=== PATIENT | female | born 1970 | race Caucasian/White ===

== ENCOUNTER 2016-08-23 22:38 | Emergency (ER) | payer BC, OTHER ==
[2016-08-23 22:45] VITALS: BP 133/77; PULSE 84; RESP 18; TEMP 98.2
[2016-08-23 23:16] LABS: Appearance,Urine Clear (Clear); Bacteria,Urine Rare /hpf; Bilirubin,Urine Negative (Negative); Glucose,Urine (UA) Negative (Negative); Ketones,Urine Negative (Negative); Leukocyte Esterase,Urine Large (Negative); Mucus,Urine Few /hpf; Nitrite,Urine Negative (Negative); Particle Count 5760; Protein,Urine Negative (Negative); RBC,Urine 2 /hpf (0-5); Specific Gravity,Urine 1.017 (1.001-1.035); Squamous Epithelial Cell,Urine 4 /hpf (0-4); UA Billing (MACRO vs. MICRO) MICRO; Urobilinogen,Urine <2.0 mg/dL (<2.0); WBC,Urine 1 /hpf (0-5)
--- NOTE | 2016-08-23 23:29 | ED ---
General Adult HPI - General Chief complaint: Abdominal Pain Stated complaint: female Time Seen by Provider: 08/23/16 22:49 Source: patient, RN notes reviewed Mode of arrival: ambulatory Limitations: no limitations - History of Present Illness Initial comments: 46-year-old female presents emergency Department chief complaint of vaginal pain. Patient states that she's had some soreness last few days. Patient denies any discharge or any bleeding. She states she's not had a menstrual cycle in 5 years. Patient states that she had 4 pregnancies with 4 live births. Patient states that she has no dysuria no hematuria. Patient states that when she sits down she feels some irritation and some pain in her vaginal region. Patient states she has no rectal pain and denies any diarrhea or constipation. - Related Data Home Medications Medication Instructions Recorded Confirmed ALPRAZolam [Xanax] 1 mg PO Q8HR PRN 01/12/15 08/23/16 Albuterol Inhaler [Ventolin Hfa 1 - 2 puff INHALATION RT-Q6H PRN 01/12/15 Inhaler] Budesonide/Formoterol Fumarate 2 puff INHALATION RT-BID 01/12/15 08/23/16 [Symbicort 160-4.5 Mcg Inhaler] Ibuprofen [Motrin] 800 mg PO Q8HR PRN 01/12/15 08/23/16 Hydrocodone/Acetaminophen [Sims 1 tab PO Q6H PRN 08/23/16 08/23/16 10-325] Omeprazole [PriLOSEC] 20 mg PO DAILY PRN 08/23/16 08/23/16 Previous Rx's Medication Instructions Recorded Acyclovir 400 mg PO TID #30 tablet 08/23/16 Allergies Allergy/AdvReac Type Severity Reaction Status Date / Time clarithromycin [From Biaxin] Allergy Unknown Verified 08/23/16 22:57 doxycycline Allergy Rash/Hives Verified 08/23/16 22:57 aspirin AdvReac Nausea & Verified 08/23/16 22:57 Vomiting Review of Systems ROS Statement: Those systems with pertinent positive or pertinent negative responses have been documented in the HPI. ROS Other: All systems not noted in ROS Statement are negative. Past Medical History Past Medical History: COPD, GERD/Reflux, Vascular Disorder Additional Past Medical History / Comment(s): PUD, DDD, chronic low back pain, cervical pain, bronchitis, hyperthyroidism. History of Any Multi-Drug Resistant Organisms: None Reported Past Surgical History: Cholecystectomy, Tubal Ligation Additional Past Surgical History / Comment(s): Laparoscopic cholecystectomy 1999 , EGD 2012. Past Anesthesia/Blood Transfusion Reactions: No Reported Reaction Past Psychological History: No Psychological Hx Reported Additional Psychological History / Comment(s): Pt resides with her parents and she has 2 of her children ages 12 living with her. She is independent. Smoking Status: Current every day smoker Past Alcohol Use History: Rare Additional Past Alcohol Use History / Comment(s): Pt states she started smoking at the age of 13 or 14yrs. She states she is under a ppd smoker. Past Drug Use History: None Reported - Past Family History Mother Family Medical History: Coronary Artery Disease (CAD), Myocardial Infarction ([place] ) Additional Family Medical History / Comment(s): Mother is 78yrs old. Father Family Medical History: GERD/Reflux Additional Family Medical History / Comment(s): Father is 78yrs old. Brother(s) Family Medical History: No Reported History Daughter(s) Family Medical History: No Reported History Son(s) Family Medical History: No Reported History General Exam Limitations: no limitations General appearance: alert, in no apparent distress Respiratory exam: Present: normal lung sounds bilaterally. Absent: respiratory distress, wheezes, rales, rhonchi, stridor Cardiovascular Exam: Present: regular rate, normal rhythm, normal heart sounds. Absent: systolic murmur, diastolic murmur, rubs, gallop, clicks GI/Abdominal exam: Present: soft, normal bowel sounds. Absent: distended, tenderness, guarding, rebound, rigid External exam: Present: lesions (Erythematous sores noted), other (exam performed with SHANIQUE Forbes). Absent: normal external exam Speculum exam: Present: normal speculum exam Course Vital Signs 08/23/16 22:44 Temperature 98.2 F Pulse Rate 84 Respiratory 18 Rate Blood Pressure 133/77 O2 Sat by Pulse 98 Oximetry Medical Decision Making - Lab Data Lab Results 08/23/16 Range/Units 23:00 Urine Color Yellow Urine Appearance Clear (Clear) Urine pH 7.0 (5.0-8.0) Ur Specific [place] 1.017 (1.001-1.035) Urine Protein Negative (Negative) Urine Glucose (UA) Negative (Negative) Urine Ketones Negative (Negative) Urine Blood Negative (Negative) Urine Nitrate Negative (Negative) Urine Bilirubin Negative (Negative) Urine Urobilinogen <2.0 (<2.0) mg/dL Ur Leukocyte Esterase Large H (Negative) Urine RBC 2 (0-5) /hpf Urine WBC 1 (0-5) /hpf Ur Squamous Epith Cells 4 (0-4) /hpf Urine Bacteria Rare H (None) /hpf Urine Mucus Few H (None) /hpf Disposition Clinical Impression: Genital herpes Disposition: HOME SELF-CARE Condition: Stable Instructions: Genital Herpes Simplex (ED) Additional Instructions: Please return to the Emergency Department if symptoms worsen or any other concerns. Prescriptions: Acyclovir 400 mg PO TID #30 tablet Referrals: Avery Connor DO [Primary Care Provider] - 1-2 days Time of Disposition: 23:29
== END 2016-08-23 23:40 | disposition home or self-care (01) ==
LOC: EC 22:38
DX: A60.04 Herpesviral vulvovaginitis (principal); J44.9 Chronic obstructive pulmonary disease, unspecified; K21.9 Gastro-esophageal reflux disease without esophagitis; F17.200 Nicotine dependence, unspecified, uncomplicated; Z79.51 Long term (current) use of inhaled steroids; Z79.899 Other long term (current) drug therapy; Z88.1 Allergy status to other antibiotic agents
CPT/HCPCS: 81001; 87070; 87205; 87491; 87591; 87808; 99284

== ENCOUNTER 2016-09-24 09:45 | Emergency (ER) | payer BC, OTHER ==
[2016-09-24] MEDS ORDERED: ONDANSETRON 4 MG/2 ML VIAL IVP STA ×2 (10:29→13:26)
[2016-09-24] MEDS ORDERED: ACETAMINOPHEN IV (For NPO) 1,000 MG in SALINE 1 100ML.BAG IVPB STA (10:29)
[2016-09-24] MEDS ORDERED: DICYCLOMINE 10 MG/ML 2 ML AMP IM STA (10:29)
[2016-09-24] MEDS ORDERED: SODIUM CHLORIDE 0.9% 2,000 ML IV STA (10:29)
[2016-09-24] MEDS ORDERED: FAMOTIDINE 20 MG/2 ML VIAL IV STA (10:29)
--- NOTE | 2016-09-24 10:32 | ED ---
General Adult HPI - General Chief complaint: Abdominal Pain Stated complaint: Vomiting Time Seen by Provider: 09/24/16 10:10 Source: patient, family, RN notes reviewed Mode of arrival: wheelchair Limitations: no limitations - History of Present Illness Initial comments: Patient is a pleasant 46-year-old female presenting to the emergency department with nausea vomiting and diarrhea. Patient has had upper respiratory chest congestion for several days. Patient started with diarrhea yesterday. Diarrhea seemed to let up today however patient has been vomiting since early in the morning.. Patient still feels nauseous. Patient does have chills and myalgias. Patient states no significant abdominal pain, just discomfort. - Related Data Home Medications Medication Instructions Recorded Confirmed ALPRAZolam [Xanax] 1 mg PO DAILY PRN 01/12/15 09/24/16 Albuterol Inhaler [Ventolin Hfa 1 - 2 puff INHALATION RT-Q6H PRN 01/12/15 Inhaler] Budesonide/Formoterol Fumarate 2 puff INHALATION RT-BID 01/12/15 09/24/16 [Symbicort 160-4.5 Mcg Inhaler] Ibuprofen [Motrin] 800 mg PO TID PRN 01/12/15 09/24/16 Hydrocodone/Acetaminophen [Crane 1 tab PO Q6H PRN 08/23/16 09/24/16 10-325] Previous Rx's Medication Instructions Recorded Ondansetron Odt [Zofran Odt] 4 mg PO Q8HR PRN #10 tab 09/24/16 Allergies Allergy/AdvReac Type Severity Reaction Status Date / Time clarithromycin [From Biaxin] Allergy Unknown Verified 09/24/16 13:29 doxycycline Allergy Rash/Hives Verified 09/24/16 13:29 aspirin AdvReac Nausea & Verified 09/24/16 13:29 Vomiting Review of Systems ROS Statement: Those systems with pertinent positive or pertinent negative responses have been documented in the HPI. ROS Other: All systems not noted in ROS Statement are negative. Constitutional: Reports: chills Eyes: Denies: eye pain ENT: Reports: congestion. Denies: ear pain Respiratory: Reports: cough Cardiovascular: Denies: chest pain Endocrine: Denies: fatigue Gastrointestinal: Reports: abdominal pain, nausea, vomiting, diarrhea Genitourinary: Denies: dysuria Musculoskeletal: Denies: back pain Skin: Denies: rash Neurological: Denies: weakness Past Medical History Past Medical History: COPD, GERD/Reflux, Vascular Disorder Additional Past Medical History / Comment(s): PUD, DDD, chronic low back pain, cervical pain, bronchitis, hyperthyroidism. History of Any Multi-Drug Resistant Organisms: None Reported Past Surgical History: Cholecystectomy, Tubal Ligation Additional Past Surgical History / Comment(s): Laparoscopic cholecystectomy 1999 , EGD 2012. Past Anesthesia/Blood Transfusion Reactions: No Reported Reaction Past Psychological History: No Psychological Hx Reported Additional Psychological History / Comment(s): Pt resides with her parents and she has 2 of her children ages 12 living with her. She is independent. Smoking Status: Current every day smoker Past Alcohol Use History: Rare Additional Past Alcohol Use History / Comment(s): Pt states she started smoking at the age of 13 or 14yrs. She states she is under a ppd smoker. Past Drug Use History: None Reported - Past Family History Mother Family Medical History: Coronary Artery Disease (CAD), Myocardial Infarction ([place] ) Additional Family Medical History / Comment(s): Mother is 78yrs old. Father Family Medical History: GERD/Reflux Additional Family Medical History / Comment(s): Father is 78yrs old. Brother(s) Family Medical History: No Reported History Daughter(s) Family Medical History: No Reported History Son(s) Family Medical History: No Reported History General Exam Limitations: no limitations General appearance: alert, in no apparent distress Head exam: Present: atraumatic Eye exam: Present: normal appearance, PERRL ENT exam: Present: normal oropharynx Neck exam: Present: normal inspection Respiratory exam: Present: normal lung sounds bilaterally Cardiovascular Exam: Present: regular rate, normal rhythm GI/Abdominal exam: Present: soft, normal bowel sounds. Absent: distended, tenderness, guarding, rebound, rigid, pulsatile mass Extremities exam: Present: normal inspection. Absent: pedal edema, calf tenderness Neurological exam: Present: alert Psychiatric exam: Present: normal affect, normal mood Skin exam: Present: normal color Course Vital Signs 09/24/16 10:14 Temperature 98.3 F Pulse Rate 56 L Respiratory 20 Rate Blood Pressure 177/82 O2 Sat by Pulse 98 Oximetry - Reevaluation(s) Reevaluation #1: 09/24/16 13:31 Patient reevaluated. Abdomen remained soft and nontender. Patient is tolerating ice chips. Patient still complains of nausea. Patient was offered computed tomography scan however refused. This is felt to be of little value secondary to nontender abdomen. 09/24/16 14:25 Patient is again reevaluated and improved. Patient is comfortable with discharge home. Medical Decision Making - Lab Data Result diagrams: 09/24/16 10:57 09/24/16 10:57 Lab Results 09/24/16 09/24/16 09/24/16 Range/Units 10:57 10:57 10:57 WBC 4.8 (3.8-10.6) k/uL RBC 4.74 (3.80-5.40) m/uL Hgb 14.5 (11.4-16.0) gm/dL Hct 43.9 (34.0-46.0) % MCV 92.7 (80.0-100.0) fL MCH 30.7 (25.0-35.0) pg MCHC 33.1 (31.0-37.0) g/dL RDW 13.1 (11.5-15.5) % Plt Count 240 (150-450) k/uL Neutrophils % 63 % Lymphocytes % 24 % Monocytes % 9 % Eosinophils % 1 % Basophils % 0 % Neutrophils # 3.0 (1.3-7.7) k/uL Lymphocytes # 1.2 (1.0-4.8) k/uL Monocytes # 0.4 (0-1.0) k/uL Eosinophils # 0.0 (0-0.7) k/uL Basophils # 0.0 (0-0.2) k/uL Sodium 141 (137-145) mmol/L Potassium 3.7 (3.5-5.1) mmol/L Chloride 106 (98-107) mmol/L Carbon Dioxide 22 (22-30) mmol/L Anion Gap 13 mmol/L BUN 14 (7-17) mg/dL Creatinine 0.54 (0.52-1.04) mg/dL Est GFR (MDRD) Af Amer >60 (>60 ml/min/1.73 sqM) Est GFR (MDRD) Non-Af >60 (>60 ml/min/1.73 sqM) Glucose 111 H (74-99) mg/dL Calcium 9.6 (8.4-10.2) mg/dL Total Bilirubin 0.8 (0.2-1.3) mg/dL AST 26 (14-36) U/L ALT 32 (9-52) U/L Alkaline Phosphatase 73 (38-126) U/L Total Protein 7.1 (6.3-8.2) g/dL Albumin 4.2 (3.5-5.0) g/dL Amylase 73 (30-110) U/L Lipase 46 (23-300) U/L Urine Color Yellow Urine Appearance Clear (Clear) Urine pH 6.0 (5.0-8.0) Ur Specific [place] 1.020 (1.001-1.035) Urine Protein 1+ H (Negative) Urine Glucose (UA) Trace H (Negative) Urine Ketones 4+ H (Negative) Urine Blood Small H (Negative) Urine Nitrate Negative (Negative) Urine Bilirubin Negative (Negative) Urine Urobilinogen <2.0 (<2.0) mg/dL Ur Leukocyte Esterase Negative (Negative) Urine RBC 5 (0-5) /hpf Urine WBC 2 (0-5) /hpf Ur Squamous Epith Cells <1 (0-4) /hpf Urine Mucus Many H (None) /hpf - Radiology Data Radiology results: image reviewed (Abdominal x-ray shows no acute process. Two- view chest x-ray shows no acute process.) Disposition Clinical Impression: Vomiting, Dehydration Disposition: HOME SELF-CARE Condition: Stable Instructions: Acute Nausea and Vomiting (ED), Dehydration (ED) Additional Instructions: Please follow-up to primary care physician in the next day for recheck. Return for not tolerating fluids, fevers, abdominal pain, worsening symptoms or other concerns. Prescriptions: Ondansetron Odt [Zofran Odt] 4 mg PO Q8HR PRN #10 tab PRN Reason: Nausea Referrals: Avery Connor DO [Primary Care Provider] - 1-2 days
[2016-09-24 11:09] LABS: Basophils % (A) 0 %; CH 32.3; CHCM 34.9; Eosinophils % (A) 1 %; HCT 43.9 % (34.0-46.0); HDW 2.51; HGB 14.5 gm/dL (11.4-16.0); Luc # (Auto) 0.13; Luc % (Auto) 3; Lymphocytes # (A) 1.2 k/uL (1.0-4.8); Lymphocytes % (A) 24 %; MCH 30.7 pg (25.0-35.0); MCHC 33.1 g/dL (31.0-37.0); MCV 92.7 fL (80.0-100.0); Mean Platelet Volume 7.1; Monocytes # (A) 0.4 k/uL (0-1.0); Monocytes % (A) 9 %; Neutrophils % (A) 63 %; RBC 4.74 m/uL (3.80-5.40); RDW 13.1 % (11.5-15.5); WBC 4.8 k/uL (3.8-10.6); WBC (Perox) 4.92
[2016-09-24 11:13] LABS: Appearance,Urine Clear (Clear); Bilirubin,Urine Negative (Negative); Glucose,Urine (UA) Trace (Negative); Ketones,Urine 4+ (Negative); Leukocyte Esterase,Urine Negative (Negative); Mucus,Urine Many /hpf; Nitrite,Urine Negative (Negative); Particle Count 19305; Protein,Urine 1+ (Negative); RBC,Urine 5 /hpf (0-5); Squamous Epithelial Cell,Urine <1 /hpf (0-4); UA Billing (MACRO vs. MICRO) MICRO; Urobilinogen,Urine <2.0 mg/dL (<2.0); WBC,Urine 2 /hpf (0-5)
[2016-09-24 11:20] LABS: ALT 32 U/L (9-52); AST 26 U/L (14-36); Alkaline Phosphatase 73 U/L (38-126); Amylase 73 U/L (30-110); Anion Gap 13 mmol/L; Blood Urea Nitrogen 14 mg/dL (7-17); Calcium 9.6 mg/dL (8.4-10.2); Carbon Dioxide 22 mmol/L (22-30); Chloride 106 mmol/L (98-107); Glucose 111 mg/dL (74-99); Non-African American GFR(MDRD) >60 (>60 ml/min/1.73 sqM); Potassium 3.7 mmol/L (3.5-5.1); Sodium 141 mmol/L (137-145); Total Bilirubin 0.8 mg/dL (0.2-1.3); Total Protein 7.1 g/dL (6.3-8.2)
--- NOTE | 2016-09-24 11:23 | XR ---
EXAMINATION TYPE: XR abdomen 2V DATE OF EXAM: 09/24/2016 11:15 AM COMPARISON: 05/16/2016 INDICATION: Abdomen pain weakness diarrhea TECHNIQUE: Single view abdomen FINDINGS: There is a normal bowel gas pattern. Psoas margins are normal. No organomegaly is present. Abdomen is examined in supine view. Air-fluid levels cannot be evaluated. Surgical clips in right low er quadrant. Osseous structures are unremarkable. IMPRESSION: 1. Unremarkable Abdomen
--- NOTE | 2016-09-24 11:24 | XR ---
EXAMINATION TYPE: XR chest 2V DATE OF EXAM: 09/24/2016 11:15 AM COMPARISON: 04/04/2015 INDICATION: Abdomen pain vomiting diarrhea TECHNIQUE: Single frontal view of the chest is obtained. FINDINGS: The heart size is normal. The pulmonary vasculature is normal. The lungs are clear. IMPRESSION: 1. No acute pulmonary process.
[2016-09-24] MEDS ORDERED: IBUPROFEN IV 400 MG in SODIUM CHLORIDE 0.9% 250 ML IV ONE (12:30)
[2016-09-24] MEDS ORDERED: SODIUM CHLORIDE 0.9% 500 ML IV STA (13:26)
[2016-09-24 14:48] VITALS: BP 167/79; PULSE 77; RESP 16; TEMP 98
== END 2016-09-24 14:52 | disposition home or self-care (01) ==
LOC: EC 09:45
DX: E86.0 Dehydration (principal); M79.1 Myalgia; J44.9 Chronic obstructive pulmonary disease, unspecified; F17.200 Nicotine dependence, unspecified, uncomplicated; Z79.51 Long term (current) use of inhaled steroids; Z88.1 Allergy status to other antibiotic agents; Z88.6 Allergy status to analgesic agent
CPT/HCPCS: 36415; 80053; 82150; 83690; 85025; 81001; 71020; 74020; 99284; 96365; 96375 ×3; 96376; 96372; 96361 ×2; J0500; J2405; J0131; J1741

== ENCOUNTER → 2017-01-02 | Outpatient (CLI) | payer BC, OTHER ==
[2017-01-02 11:17] LABS: CH 31.7; CHCM 32.4; HCT 51.6 % (34.0-46.0); HDW 2.16; HGB 16.3 gm/dL (11.4-16.0); MCH 31.2 pg (25.0-35.0); MCHC 31.6 g/dL (31.0-37.0); MCV 98.6 fL (80.0-100.0); Mean Platelet Volume 6.8; RBC 5.24 m/uL (3.80-5.40); RDW 13.2 % (11.5-15.5); WBC 7.5 k/uL (3.8-10.6)
[2017-01-02 11:46] LABS: ALT 41 U/L (9-52); AST 21 U/L (14-36); Alkaline Phosphatase 78 U/L (38-126); Anion Gap 9 mmol/L; Blood Urea Nitrogen 14 mg/dL (7-17); Calcium 10.1 mg/dL (8.4-10.2); Carbon Dioxide 28 mmol/L (22-30); Chloride 106 mmol/L (98-107); Glucose 103 mg/dL (74-99); Non-African American GFR(MDRD) >60 (>60 ml/min/1.73 sqM); Potassium 4.5 mmol/L (3.5-5.1); Sodium 143 mmol/L (137-145); Total Bilirubin 0.6 mg/dL (0.2-1.3); Total Protein 7.5 g/dL (6.3-8.2)
[2017-01-02 12:18] LABS: Prolactin 15.4 ng/mL (3.0-18.6)
[2017-01-02 12:48] LABS: Vitamin B12 751 pg/mL (239-931)
== END | disposition home or self-care (01) ==
LOC: LABWHC1 10:55
PROVIDERS: ATTEND Internal Medicine Endocrinology, Diabetes & Metabolism
DX: R53.83 Other fatigue (principal)
CPT/HCPCS: 36415; 80053; 82533; 82607; 84146; 84439; 84443; 84481; 85027

== ENCOUNTER → 2017-01-04 | Outpatient (CLI) | payer BC | END | disposition home or self-care (01) | LOC: LABWHC1 10:01 | PROVIDERS: ATTEND Internal Medicine Endocrinology, Diabetes & Metabolism | DX: R53.83 Other fatigue (principal); Z86.39 Personal history of other endocrine, nutritional and metabolic disease | CPT/HCPCS: 36415; 82533; 84439; 84443 ==

== ENCOUNTER → 2017-01-05 | Outpatient (CLI) | payer BC, OTHER | END | disposition home or self-care (01) | LOC: LABWHC1 12:59 | PROVIDERS: ATTEND Internal Medicine Endocrinology, Diabetes & Metabolism | DX: R53.83 Other fatigue (principal); Z86.39 Personal history of other endocrine, nutritional and metabolic disease | CPT/HCPCS: 36415; 82024; 82533 ==

== ENCOUNTER → 2017-01-09 | Outpatient (CLI) | payer OTHER ==
[2017-01-09 11:34] LABS: Follicle Stimulating Hormone 89.1 mIU/mL; Prolactin 20.9 ng/mL (3.0-18.6)
[2017-01-09 15:12] LABS: ACTH <5.00 pg/mL (0.00-45.99)
== END | disposition home or self-care (01) ==
LOC: LABWHC1 06:58
PROVIDERS: ATTEND Internal Medicine Endocrinology, Diabetes & Metabolism
DX: E27.40 Unspecified adrenocortical insufficiency (principal); N91.2 Amenorrhea, unspecified
CPT/HCPCS: 36415; 82024; 82533; 82670; 83001; 83002; 84146; 84439; 84443; 84480

== ENCOUNTER → 2017-01-29 | Outpatient (CLI) | payer OTHER ==
--- NOTE | 2017-01-29 13:36 | MM ---
Reason for exam: screening (asymptomatic). Baseline mammogram. History: Patient is postmenopausal. Physical Findings: Nurse did not find any significant physical abnormalities on exam. MG Screening Mammo w CAD Bilateral CC and MLO view(s) were taken. There are scattered fibroglandular densities. Some lateral right breast nodularity. Additional lateral right breast asymmetric density. These results were verbally communicated with the patient and result sheet given to the patient on 01/29/17. ASSESSMENT: Incomplete: need additional imaging evaluation, BI-RAD 0 RECOMMENDATION: Special view mammogram of the right breast. If lesion persists on supplemental views, image directed ultrasound is recommended. [facility] will attempt to contact patient to return for supplemental views and ultrasound if indicated.
--- NOTE | 2017-01-29 13:40 | MM ---
Reason for exam: additional evaluation requested from abnormal screening. History: Patient is postmenopausal. Physical Findings: Breast exam preformed at baseline screening. MG Work Up Mamm w CAD RT ML and spot compression CC view(s) were taken of the right breast. There are scattered fibroglandular densities. The questioned lateral asymmetric density does not persist on spot view. There is a small area of adjacent nodularity which may localize to the lower outer quadrant on the lateral view for which a 6 month follow up is recommended. These results were verbally communicated with the patient and result sheet given to the patient on 01/29/17. ASSESSMENT: Probably benign, BI-RAD 3 RECOMMENDATION: Follow-up diagnostic mammogram of the right breast in 6 months.
== END | disposition home or self-care (01) ==
LOC: RADMAMWWP 10:37
PROVIDERS: ATTEND Family Medicine
DX: Z12.31 Encounter for screening mammogram for malignant neoplasm of breast (principal); R92.8 Other abnormal and inconclusive findings on diagnostic imaging of breast; R92.2 Inconclusive mammogram
CPT/HCPCS: G0202; G0206

== ENCOUNTER → 2017-02-06 | Outpatient (CLI) | payer OTHER ==
--- NOTE | 2017-02-06 16:29 | MR ---
EXAMINATION TYPE: MR pituitary wo/w con DATE OF EXAM: 02/06/2017 COMPARISON: NONE HISTORY: UNSPECIFIED ADRENOCORTICAL INSUFFICIENCY TECHNIQUE: Multiplanar, multisequence images of the brain and brainstem is performed without and with IV contras t, utilizing 10 mL intravenous MultiHance . Pituitary gland protocol. FINDINGS: Pituitary gland is normal in size within sella turcica. Post contrast images show fairly ho mogeneous enhancement with a nonspecific 2 mm area of nonenhancement seen slightly posteriorly just p osterior to pituitary stalk on sagittal image 9 series 601.The area does not reproducible on coronal images. Pituitary stalk shows normal enhancement in the midline. Optic chiasm is not effaced. Adjacen t carotid siphons are unremarkable. No gross hydrocephalus is seen. Visualized portion craniocervical junction is within normal limits. IMPRESSION: Cannot exclude 2 mm microadenoma slight posterior aspect of pituitary gland as detailed a edel. Neurosurgical consult and MRI imaging follow-up in 6-12 months time should be considered.
== END | disposition home or self-care (01) ==
LOC: RADMRIMAIN 14:52
PROVIDERS: ATTEND Internal Medicine Endocrinology, Diabetes & Metabolism
DX: E27.40 Unspecified adrenocortical insufficiency (principal)
CPT/HCPCS: 70553; A9577

== ENCOUNTER 2017-04-18 02:52 | Emergency (ER) | payer OTHER ==
[2017-04-18 02:59] VITALS: TEMP 97.8
[2017-04-18] MEDS ORDERED: IBUPROFEN 800 MG TAB PO STA (03:22)
--- NOTE | 2017-04-18 03:30 | ED ---
General Adult HPI - General Chief complaint: Extremity Injury, Upper Stated complaint: left wrist pain Time Seen by Provider: 04/18/17 03:15 Source: patient, RN notes reviewed Mode of arrival: ambulatory Limitations: no limitations - History of Present Illness Initial comments: 47-year-old female presents to the Emergency Department today with complaint of left wrist pain. She states while getting dressed for work this evening she felt a "pop" in her left wrist. She complains of tenderness and mild swelling. She reports taking one Eldon that is prescribed by her PCP. She did have a wrist cock-up splint at home and wore it while working this evening. She admits that constriction of movement relieved some of the pain. Denies fever, chills, chest pain, shortness of breath, abdominal pain, nausea, vomiting, dysuria, hematuria, numbess, tingling, headache or vision changes. - Related Data Home Medications Medication Instructions Recorded Confirmed ALPRAZolam [Xanax] 1 mg PO DAILY PRN 01/12/15 09/24/16 Albuterol Inhaler [Ventolin Hfa 1 - 2 puff INHALATION RT-Q6H PRN 01/12/15 Inhaler] Budesonide/Formoterol Fumarate 2 puff INHALATION RT-BID 01/12/15 09/24/16 [Symbicort 160-4.5 Mcg Inhaler] Ibuprofen [Motrin] 800 mg PO TID PRN 01/12/15 09/24/16 Hydrocodone/Acetaminophen [[place]ldon 1 tab PO Q6H PRN 08/23/16 09/24/16 10-325] Previous Rx's Medication Instructions Recorded Ondansetron Odt [Zofran Odt] 4 mg PO Q8HR PRN #10 tab 09/24/16 Allergies Allergy/AdvReac Type Severity Reaction Status Date / Time clarithromycin [From Biaxin] Allergy Unknown Verified 04/18/17 02:59 doxycycline Allergy Rash/Hives Verified 04/18/17 02:59 aspirin AdvReac Nausea & Verified 04/18/17 02:59 Vomiting Review of Systems ROS Statement: Those systems with pertinent positive or pertinent negative responses have been documented in the HPI. ROS Other: All systems not noted in ROS Statement are negative. Past Medical History Past Medical History: COPD, GERD/Reflux, Vascular Disorder Additional Past Medical History / Comment(s): PUD, DDD, chronic low back pain, cervical pain, bronchitis, hyperthyroidism. History of Any Multi-Drug Resistant Organisms: None Reported Past Surgical History: Cholecystectomy, Tubal Ligation Additional Past Surgical History / Comment(s): Laparoscopic cholecystectomy 1999 , EGD 2012. Past Anesthesia/Blood Transfusion Reactions: No Reported Reaction Past Psychological History: No Psychological Hx Reported Smoking Status: Current every day smoker Past Alcohol Use History: Rare Past Drug Use History: None Reported - Past Family History Mother Family Medical History: Coronary Artery Disease (CAD), Myocardial Infarction ([place] ) Additional Family Medical History / Comment(s): Mother is 78yrs old. Father Family Medical History: GERD/Reflux Additional Family Medical History / Comment(s): Father is 78yrs old. Brother(s) Family Medical History: No Reported History Daughter(s) Family Medical History: No Reported History Son(s) Family Medical History: No Reported History General Exam - General Exam Comments Initial Comments: General: Alert, oriented and cooperative; in no apparent distress. Head: Normocephalic and atraumatic. Eyes: Pupils equal, round and reactive to light. Extraocular movements intact.. Neck: Normal ROM. No JVD. Respiratory: Lungs clear to auscultation bilaterally. No wheezes, rales or rhonchi. No dyspnea noted. Cardiovascular: Regular rate and rhythm. Normal S1 and S2. No murmurs, rubs or gallops. Neurological: Alert and oriented x3. CN II-XII grossly intact. Psychiatric: Normal mood and affect. No overt signs of depression or anxiety noted. Extremities/Skin: [place], warm and dry. Radial pulses 2+ equal and palpable bilaterally. Mild swelling, redness and tenderness noted at the medial aspect of the left wrist. Pain with extension of left wrist. Capillary refill <2sec. Limitations: no limitations Course Vital Signs 04/18/17 02:55 Temperature 97.8 F Pulse Rate 79 Respiratory 16 Rate Blood Pressure 125/77 O2 Sat by Pulse 97 Oximetry Medical Decision Making - Medical Decision Making X-ray of the left wrist is normal. Patient likely has left wrist strain. Will discharge patient home with Abdullahi bandage wrap. Was advised rest and ice wrist. She may take Ibuprofen as needed for pain and swelling. Disposition Clinical Impression: Strain of wrist, left Disposition: HOME SELF-CARE Condition: Good Instructions: Wrist Sprain (ED) Additional Instructions: Follow up with PCP or Orthopedics in 7-10 days. May take Ibuprofen as needed for pain and swelling. Referrals: Avery Connor DO [Primary Care Provider] - 1-2 days Time of Disposition: 04:09
--- NOTE | 2017-04-18 04:16 | XR ---
EXAM: XR Left Wrist Complete, 3 or More Views CLINICAL HISTORY: Reason: Pain TECHNIQUE: Frontal, lateral and oblique views of the left wrist. COMPARISON: No relevant prior studies available. FINDINGS: Bones/joints: Unremarkable. No acute fracture. No dislocation. Soft tissues: Unremarkable. No radiopaque foreign body. IMPRESSION: Normal left wrist x-rays.
[2017-04-18 04:39] VITALS: BP 115/71; PULSE 59; RESP 18
== END 2017-04-18 04:44 | disposition home or self-care (01) ==
LOC: EC 02:52
DX: S66.912A Strain of unspecified muscle, fascia and tendon at wrist and hand level, left hand, initial encounter (principal); J44.9 Chronic obstructive pulmonary disease, unspecified; F17.200 Nicotine dependence, unspecified, uncomplicated; Z79.51 Long term (current) use of inhaled steroids; Z88.1 Allergy status to other antibiotic agents; Z88.6 Allergy status to analgesic agent; X50.1XXA Overexertion from prolonged static or awkward postures, initial encounter
CPT/HCPCS: 99283

== ENCOUNTER 2017-06-02 13:52 | Emergency (ER) | payer OTHER ==
[2017-06-02 14:00] VITALS: TEMP 98.9
[2017-06-02] MEDS ORDERED: SODIUM CHLORIDE 0.9% 1,000 ML IV STA (14:09)
[2017-06-02] MEDS ORDERED: ONDANSETRON 4 MG/2 ML VIAL IVP STA ×2 (14:09→15:00)
[2017-06-02] MEDS ORDERED: FAMOTIDINE 20 MG/2 ML VIAL IV STA (14:09)
--- NOTE | 2017-06-02 14:11 | ED ---
General Adult HPI - General Chief complaint: Abdominal Pain Stated complaint: Vomiting Time Seen by Provider: 06/02/17 14:03 Source: patient, RN notes reviewed Mode of arrival: ambulatory Limitations: no limitations - History of Present Illness Initial comments: Patient 47-year-old female who presents emergency room today with a chief complaint of nausea vomiting over the last 3 days. Patient does admit to abdominal cramping and pain in the epigastric area. Patient does admit to a history of stomach ulcers worried that this could be related. States no longer on Prilosec she stopped taking her a while ago. Patient denies any other sick contacts at home. She denies any other complaints or associated symptoms. Denies any signs of blood in the emesis. Patient denies any recent fever, chills , shortness of breath, chest pain, back pain, numbness or tingling, dysuria or hematuria, constipation or diarrhea, headaches or visual changes, or any other complaints. - Related Data Home Medications Medication Instructions Recorded Confirmed ALPRAZolam [Xanax] 1 mg PO DAILY PRN 01/12/15 06/02/17 Albuterol Inhaler [Ventolin Hfa 1 - 2 puff INHALATION RT-Q6H PRN 01/12/15 Inhaler] Budesonide/Formoterol Fumarate 2 puff INHALATION RT-BID 01/12/15 06/02/17 [Symbicort 160-4.5 Mcg Inhaler] Hydrocodone/Acetaminophen [[place] 1 tab PO Q6H PRN 08/23/16 06/02/17 10-325] Previous Rx's Medication Instructions Recorded Ondansetron Odt [Zofran ODT] 4 mg PO Q8HR PRN #20 tab 06/02/17 Allergies Allergy/AdvReac Type Severity Reaction Status Date / Time clarithromycin [From Biaxin] Allergy Unknown Verified 06/02/17 14:11 doxycycline Allergy Rash/Hives Verified 06/02/17 14:11 aspirin AdvReac Nausea & Verified 06/02/17 14:11 Vomiting Review of Systems ROS Statement: Those systems with pertinent positive or pertinent negative responses have been documented in the HPI. ROS Other: All systems not noted in ROS Statement are negative. Past Medical History Past Medical History: COPD, GERD/Reflux, Vascular Disorder Additional Past Medical History / Comment(s): PUD, DDD, chronic low back pain, cervical pain, bronchitis, hyperthyroidism. History of Any Multi-Drug Resistant Organisms: None Reported Past Surgical History: Cholecystectomy, Tubal Ligation Additional Past Surgical History / Comment(s): Laparoscopic cholecystectomy 1999 , EGD 2012. Past Anesthesia/Blood Transfusion Reactions: No Reported Reaction Past Psychological History: No Psychological Hx Reported Smoking Status: Current every day smoker Past Alcohol Use History: Rare Past Drug Use History: None Reported - Past Family History Mother Family Medical History: Coronary Artery Disease (CAD), Myocardial Infarction ([place] ) Additional Family Medical History / Comment(s): Mother is 78yrs old. Father Family Medical History: GERD/Reflux Additional Family Medical History / Comment(s): Father is 78yrs old. Brother(s) Family Medical History: No Reported History Daughter(s) Family Medical History: No Reported History Son(s) Family Medical History: No Reported History General Exam - General Exam Comments Initial Comments: General: The patient is awake and alert, in no distress, and does not appear acutely ill. Eye: Pupils are equal, round and reactive to light, extra-ocular movements are intact. No nystagmus. There is normal conjunctiva bilaterally. No signs of icterus. Ears, nose, mouth and throat: There are moist mucous membranes and no oral lesions. Neck: The neck is supple, there is no tenderness or JVD. Cardiovascular: There is a regular rate and rhythm. No murmur, rub or gallop is appreciated. Respiratory: Lungs are clear to auscultation, respirations are non-labored, breath sounds are equal. No wheezes, stridor, rales, or rhonchi. Gastrointestinal: Normal. Exam. Normal bowel sounds. Soft on palpation. Patient does have tenderness epigastric. No rebound tenderness. No guarding. No CVA tenderness. Musculoskeletal: Normal ROM, no tenderness. Strength 5/5. Sensation intact. Pulses equal bilaterally 2+. Neurological: A&O x 3. CN II-XII intact, There are no obvious motor or sensory deficits. Coordination appears grossly intact. Speech is normal. Skin: Skin is warm and dry and no rashes or lesions are noted. Psychiatric: Cooperative, appropriate mood & affect, normal judgment. Limitations: no limitations Course Vital Signs 06/02/17 06/02/17 13:57 15:13 Temperature 98.9 F Pulse Rate 74 60 Respiratory 20 18 Rate Blood Pressure 129/79 149/72 O2 Sat by Pulse 97 99 Oximetry Medical Decision Making - Medical Decision Making Patient reexamined at this time and no signs of distress. Has had no nausea vomiting here in emergency room. Abdomen soft on palpation. Patient's x-rays unremarkable. Labs been reviewed. Patient will be discharged home with nausea medication for symptoms advised follow-up family doctor return here to the emergency room if any symptoms increase or worsen or any other concerns. - Lab Data Result diagrams: 06/02/17 14:20 06/02/17 14:20 Lab Results 06/02/17 06/02/17 06/02/17 Range/Units 14:20 14:20 14:20 WBC 6.8 (3.8-10.6) k/uL RBC 5.37 (3.80-5.40) m/uL Hgb 16.9 H (11.4-16.0) gm/dL Hct 50.9 H (34.0-46.0) % MCV 94.7 (80.0-100.0) fL MCH 31.5 (25.0-35.0) pg MCHC 33.2 (31.0-37.0) g/dL RDW 14.0 (11.5-15.5) % Plt Count 274 (150-450) k/uL Neutrophils % 66 % Lymphocytes % 18 % Monocytes % 12 % Eosinophils % 2 % Basophils % 1 % Neutrophils # 4.5 (1.3-7.7) k/uL Lymphocytes # 1.3 (1.0-4.8) k/uL Monocytes # 0.8 (0-1.0) k/uL Eosinophils # 0.1 (0-0.7) k/uL Basophils # 0.0 (0-0.2) k/uL Sodium 137 (137-145) mmol/L Potassium 3.4 L (3.5-5.1) mmol/L Chloride 103 (98-107) mmol/L Carbon Dioxide 23 (22-30) mmol/L Anion Gap 11 mmol/L BUN 19 H (7-17) mg/dL Creatinine 0.69 (0.52-1.04) mg/dL Est GFR (MDRD) Af Amer >60 (>60 ml/min/1.73 sqM) Est GFR (MDRD) Non-Af >60 (>60 ml/min/1.73 sqM) Glucose 122 H (74-99) mg/dL Calcium 10.0 (8.4-10.2) mg/dL Total Bilirubin 1.0 (0.2-1.3) mg/dL AST 24 (14-36) U/L ALT 35 (9-52) U/L Alkaline Phosphatase 83 (38-126) U/L Total Protein 8.0 (6.3-8.2) g/dL Albumin 4.6 (3.5-5.0) g/dL Amylase 94 (30-110) U/L Lipase 89 (23-300) U/L Urine Color Urine Appearance (Clear) Urine pH (5.0-8.0) Ur Specific [place] (1.001-1.035) Urine Protein (Negative) Urine Glucose (UA) (Negative) Urine Ketones (Negative) Urine Blood (Negative) Urine Nitrite (Negative) Urine Bilirubin (Negative) Urine Urobilinogen (<2.0) mg/dL Ur Leukocyte Esterase (Negative) Urine RBC (0-5) /hpf Urine WBC (0-5) /hpf Ur Squamous Epith Cells (0-4) /hpf Urine Mucus (None) /hpf Urine HCG, Qual Not Detected (Not Detectd) 06/02/17 Range/Units 14:20 WBC (3.8-10.6) k/uL RBC (3.80-5.40) m/uL Hgb (11.4-16.0) gm/dL Hct (34.0-46.0) % MCV (80.0-100.0) fL MCH (25.0-35.0) pg MCHC (31.0-37.0) g/dL RDW (11.5-15.5) % Plt Count (150-450) k/uL Neutrophils % % Lymphocytes % % Monocytes % % Eosinophils % % Basophils % % Neutrophils # (1.3-7.7) k/uL Lymphocytes # (1.0-4.8) k/uL Monocytes # (0-1.0) k/uL Eosinophils # (0-0.7) k/uL Basophils # (0-0.2) k/uL Sodium (137-145) mmol/L Potassium (3.5-5.1) mmol/L Chloride (98-107) mmol/L Carbon Dioxide (22-30) mmol/L Anion Gap mmol/L BUN (7-17) mg/dL Creatinine (0.52-1.04) mg/dL Est GFR (MDRD) Af Amer (>60 ml/min/1.73 sqM) Est GFR (MDRD) Non-Af (>60 ml/min/1.73 sqM) Glucose (74-99) mg/dL Calcium (8.4-10.2) mg/dL Total Bilirubin (0.2-1.3) mg/dL AST (14-36) U/L ALT (9-52) U/L Alkaline Phosphatase (38-126) U/L Total Protein (6.3-8.2) g/dL Albumin (3.5-5.0) g/dL Amylase (30-110) U/L Lipase (23-300) U/L Urine Color Yellow Urine Appearance Cloudy H (Clear) Urine pH 6.0 (5.0-8.0) Ur Specific [place] 1.022 (1.001-1.035) Urine Protein 1+ H (Negative) Urine Glucose (UA) Trace H (Negative) Urine Ketones 1+ H (Negative) Urine Blood Negative (Negative) Urine Nitrite Negative (Negative) Urine Bilirubin Negative (Negative) Urine Urobilinogen 4.0 (<2.0) mg/dL Ur Leukocyte Esterase Trace H (Negative) Urine RBC 7 H (0-5) /hpf Urine WBC 3 (0-5) /hpf Ur Squamous Epith Cells 11 H (0-4) /hpf Urine Mucus Many H (None) /hpf Urine HCG, Qual (Not Detectd) Disposition Clinical Impression: Nausea & vomiting Disposition: HOME SELF-CARE Condition: Good Instructions: Acute Nausea and Vomiting (ED) Additional Instructions: Please use medication as discussed. Please follow-up with family doctor in the next 2 days of symptoms have not improved. Please return to emergency room if the symptoms increase or worsen or for any other concerns. Prescriptions: Ondansetron Odt [Zofran ODT] 4 mg PO Q8HR PRN #20 tab PRN Reason: Nausea Referrals: Avery Connor DO [Primary Care Provider] - 1-2 days Time of Disposition: 15:16
[2017-06-02 14:34] LABS: Basophils % (A) 1 %; CH 31.8; CHCM 33.8; Eosinophils # (A) 0.1 k/uL (0-0.7); Eosinophils % (A) 2 %; HCT 50.9 % (34.0-46.0); HDW 2.27; HGB 16.9 gm/dL (11.4-16.0); Luc # (Auto) 0.12; Luc % (Auto) 2; Lymphocytes # (A) 1.3 k/uL (1.0-4.8); Lymphocytes % (A) 18 %; MCH 31.5 pg (25.0-35.0); MCHC 33.2 g/dL (31.0-37.0); MCV 94.7 fL (80.0-100.0); Mean Platelet Volume 7.4; Monocytes # (A) 0.8 k/uL (0-1.0); Monocytes % (A) 12 %; Neutrophils # (A) 4.5 k/uL (1.3-7.7); Neutrophils % (A) 66 %; RBC 5.37 m/uL (3.80-5.40); WBC 6.8 k/uL (3.8-10.6); WBC (Perox) 6.82
[2017-06-02 14:38] LABS: Appearance,Urine Cloudy (Clear); Bilirubin,Urine Negative (Negative); Glucose,Urine (UA) Trace (Negative); Ketones,Urine 1+ (Negative); Leukocyte Esterase,Urine Trace (Negative); Mucus,Urine Many /hpf; Nitrite,Urine Negative (Negative); Particle Count 16659; Protein,Urine 1+ (Negative); RBC,Urine 7 /hpf (0-5); Specific Gravity,Urine 1.022 (1.001-1.035); Squamous Epithelial Cell,Urine 11 /hpf (0-4); UA Billing (MACRO vs. MICRO) MICRO; WBC,Urine 3 /hpf (0-5)
[2017-06-02 14:45] LABS: ALT 35 U/L (9-52); AST 24 U/L (14-36); Alkaline Phosphatase 83 U/L (38-126); Amylase 94 U/L (30-110); Anion Gap 11 mmol/L; Blood Urea Nitrogen 19 mg/dL (7-17); Carbon Dioxide 23 mmol/L (22-30); Chloride 103 mmol/L (98-107); Glucose 122 mg/dL (74-99); Non-African American GFR(MDRD) >60 (>60 ml/min/1.73 sqM); Potassium 3.4 mmol/L (3.5-5.1); Sodium 137 mmol/L (137-145)
--- NOTE | 2017-06-02 14:46 | XR ---
EXAMINATION TYPE: XR KUB DATE OF EXAM: 06/02/2017 COMPARISON: 09/24/2016 HISTORY: Abdominal pain for 4 days TECHNIQUE: 2 views FINDINGS: There is no sign of intestinal obstruction or pneumoperitoneum. Fecal pattern is normal. Th ere are no pathologic calcifications over the kidneys. Lung bases are clear. There is no evidence of a mass. IMPRESSION: Nonacute abdomen. No change compared to last exam.
[2017-06-02 15:14] VITALS: BP 149/72; PULSE 60; RESP 18
== END 2017-06-02 15:33 | disposition home or self-care (01) ==
LOC: EC 13:52
DX: R11.2 Nausea with vomiting, unspecified (principal); R10.13 Epigastric pain; J44.9 Chronic obstructive pulmonary disease, unspecified; F17.200 Nicotine dependence, unspecified, uncomplicated; Z79.51 Long term (current) use of inhaled steroids; Z88.6 Allergy status to analgesic agent; Z88.1 Allergy status to other antibiotic agents; Z90.49 Acquired absence of other specified parts of digestive tract; Z98.51 Tubal ligation status
CPT/HCPCS: 36415; 80053; 82150; 83690; 85025; 81001; 81025; 74000; 99284; 96374; 96375; 96376; 96361; J2405

== ENCOUNTER → 2017-08-29 | Outpatient (CLI) | payer OTHER ==
--- NOTE | 2017-08-29 14:37 | MM ---
Reason for exam: follow-up at short interval from prior study. Last mammogram was performed 7 months ago. History: Patient is postmenopausal. Physical Findings: Nurse did not find any significant physical abnormalities on exam. MG Diagnostic Mammo RT w CAD CC and MLO view(s) were taken of the right breast. Prior study comparison: January 29, 2017, right breast MG work up mamm w CAD RT. January 29, 2017, bilateral MG screening mammo w CAD. The breast tissue is heterogeneously dense. This may lower the sensitivity of mammography. The previously seen lateral 2mm asymmetry is stable and may represent a node with a notch or tortuous vessel. Precautionary 6 month follow up diagnostic right mammogram is recommended. These results were verbally communicated with the patient and result sheet given to the patient on 08/29/17. ASSESSMENT: Probably benign, BI-RAD 3 RECOMMENDATION: Follow-up diagnostic mammogram of both breasts in 6 months. Back on schedule.
== END | disposition home or self-care (01) ==
LOC: RADMAMWWP 13:33
PROVIDERS: ATTEND Family Medicine
DX: R92.8 Other abnormal and inconclusive findings on diagnostic imaging of breast (principal)
CPT/HCPCS: 77065

== ENCOUNTER → 2017-10-17 | Outpatient (CLI) | payer OTHER ==
--- NOTE | 2017-10-17 15:00 | XR ---
Bilateral hands HISTORY: Pain bilaterally fifth metacarpals x months 3 views of each hand are submitted on total 6 images Correlation to left wrist 04/18/2017 Bone mineralization, joint spaces and alignment are within limits. No fracture or dislocation. IMPRESSION: No abnormality evident to account for patient's symptoms. MRI may be of benefit
== END | disposition home or self-care (01) ==
LOC: RADXRMAIN 12:47
PROVIDERS: ATTEND Family Medicine
DX: M19.90 Unspecified osteoarthritis, unspecified site (principal)

== ENCOUNTER 2018-01-09 17:37 | Emergency (ER) | payer OTHER ==
[2018-01-09 17:55] VITALS: BP 135/81; PULSE 76; RESP 16; TEMP 97.8
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
--- NOTE | 2018-01-09 19:15 | XR ---
EXAMINATION TYPE: XR ankle limited bilateral DATE OF EXAM: 01/09/2018 COMPARISON: NONE HISTORY: Ankle pain TECHNIQUE: 2 views each ankle FINDINGS: I see no fracture nor dislocation. Joint spaces are normal. Soft tissues appear normal. IMPRESSION: Negative bilateral ankle exam.
== END 2018-01-09 19:33 | disposition home or self-care (01) ==
LOC: EC 17:37
DX: S93.401A Sprain of unspecified ligament of right ankle, initial encounter (principal); S93.402A Sprain of unspecified ligament of left ankle, initial encounter; M50.21 Other cervical disc displacement, high cervical region; M50.222 Other cervical disc displacement at C5-C6 level; R51 Headache; J44.9 Chronic obstructive pulmonary disease, unspecified; F17.200 Nicotine dependence, unspecified, uncomplicated; Z79.51 Long term (current) use of inhaled steroids; Z88.1 Allergy status to other antibiotic agents; Z88.6 Allergy status to analgesic agent; V44.5XXA Car driver injured in collision with heavy transport vehicle or bus in traffic accident, initial encounter; Y92.89 Other specified places as the place of occurrence of the external cause
CPT/HCPCS: 70450; 72125; 99284

== ENCOUNTER 2018-05-18 20:01 | Emergency (ER) | payer OTHER ==
[2018-05-18 20:18] VITALS: TEMP 97.9
[2018-05-18] MEDS ORDERED: SODIUM CHLORIDE 0.9% 2,000 ML IV STA (20:20)
[2018-05-18] MEDS: SODIUM CHLORIDE 0.9% 1,000 ML IV STA ×2 (20:22→22:01)
--- NOTE | 2018-05-18 20:27 | ED ---
Syncope HPI - General Chief Complaint: Syncope Stated Complaint: Dizziness Time Seen by Provider: 05/18/18 20:10 Source: patient Mode of arrival: ambulatory Limitations: no limitations - History of Present Illness Initial Comments: This is a 48-year-old female that presents for near-syncope. She was with her daughter and another room here in the emergency department when she stood up and felt very lightheaded and felt hot and her vision got bright. She felt like she was in the past set down. Nursing staff was there immediately and noted that her blood pressure was in the 70s. Patient states that she is a history of COPD but does not or did not have any chest pain, shortness breath, abdominal pain, nausea/vomiting/diarrhea during this episode. He said this is never happened before and her only other significant medical problem was she was being worked up for hypothyroidism. He currently denies any neurologic symptoms such as numbness, tingling, headache, vision changes. - Related Data Home Medications Medication Instructions Recorded Confirmed ALPRAZolam [Xanax] 1 mg PO DAILY PRN 01/12/15 06/02/17 Albuterol Inhaler [Ventolin Hfa 1 - 2 puff INHALATION RT-Q6H PRN 01/12/15 Inhaler] Budesonide/Formoterol Fumarate 2 puff INHALATION RT-BID 01/12/15 06/02/17 [Symbicort 160-4.5 Mcg Inhaler] Hydrocodone/Acetaminophen [[place] 1 tab PO Q6H PRN 08/23/16 06/02/17 10-325] Previous Rx's Medication Instructions Recorded Ondansetron Odt [Zofran ODT] 4 mg PO Q8HR PRN #20 tab 06/02/17 Cyclobenzaprine [Flexeril] 10 mg PO TID #20 tab 01/09/18 Ibuprofen [Motrin] 600 mg PO Q6HR PRN #40 day 01/09/18 Sulfamethox-Tmp 800-160Mg [Bactrim 1 tab PO Q12HR 3 Days #6 tab 05/18/18 DS 800-160 mg] Allergies Allergy/AdvReac Type Severity Reaction Status Date / Time clarithromycin [From Biaxin] Allergy Unknown Verified 05/18/18 20:18 doxycycline Allergy Rash/Hives Verified 05/18/18 20:18 aspirin AdvReac Nausea & Verified 05/18/18 20:18 Vomiting Review of Systems ROS Statement: Those systems with pertinent positive or pertinent negative responses have been documented in the HPI. Constitutional: Negative for chills, fatigue and fever. HENT: Negative for congestion. Respiratory: Negative for chest tightness, shortness of breath and wheezing. Negative for cough Cardiovascular: Negative for chest pain and palpitations. Gastrointestinal: Negative for abdominal pain. Negative for abdominal distention , diarrhea, nausea and vomiting. Genitourinary: Negative for dysuria. Musculoskeletal: Negative for back pain, neck pain and neck stiffness. Skin: Negative for color change. Neurological: Positive for dizziness and lightheadedness, speech difficulty. Psychiatric/Behavioral: Negative for agitation and confusion. Negative for anxiety ROS Other: All systems not noted in ROS Statement are negative. Past Medical History Past Medical History: COPD, GERD/Reflux, Vascular Disorder Additional Past Medical History / Comment(s): PUD, DDD, chronic low back pain, cervical pain, bronchitis, hyperthyroidism. History of Any Multi-Drug Resistant Organisms: None Reported Past Surgical History: Cholecystectomy, Tubal Ligation Additional Past Surgical History / Comment(s): Laparoscopic cholecystectomy 1999 , EGD 2012. Past Anesthesia/Blood Transfusion Reactions: No Reported Reaction Past Psychological History: No Psychological Hx Reported Smoking Status: Current every day smoker Past Alcohol Use History: Rare Past Drug Use History: None Reported - Past Family History Mother Family Medical History: Coronary Artery Disease (CAD), Myocardial Infarction ([place] ) Additional Family Medical History / Comment(s): Mother is 78yrs old. Father Family Medical History: GERD/Reflux Additional Family Medical History / Comment(s): Father is 78yrs old. Brother(s) Family Medical History: No Reported History Daughter(s) Family Medical History: No Reported History Son(s) Family Medical History: No Reported History General Exam - General Exam Comments Initial Comments: Constitutional: Pt is oriented to person, place, and time. Pt appears well- developed and well-nourished. No distress. HENT: Head: Normocephalic and atraumatic. Eyes: EOM are normal. Neck: Normal range of motion. Neck supple. Cardiovascular: Normal rate, regular rhythm, S1 normal, S2 normal and normal heart sounds. Exam reveals no gallop and no friction rub. No murmur heard. Pulmonary/Chest: Effort normal and breath sounds normal. No tachypnea and no bradypnea. No respiratory distress. No wheezes or rales noted. Abdominal: Soft. Bowel sounds are normal. Pt exhibits no shifting dullness, no distension, no pulsatile liver, no fluid wave, no abdominal bruit and no ascites. There is no tenderness. There is no rigidity, no rebound, no guarding, no tenderness at McBurney's point and negative Munoz's sign. Musculoskeletal: Normal range of motion. Neurological: Pt is alert and oriented to person, place, and time. No cranial nerve deficit. Skin: Skin is warm and dry. No rash noted. Pt is not diaphoretic. No erythema. No pallor. Psychiatric: Pt has a normal mood and affect. Pt behavior is normal. Thought content normal. Limitations: no limitations Course Vital Signs 05/18/18 05/18/18 05/18/18 20:14 20:15 20:20 Temperature 97.9 F Pulse Rate 64 Pulse Rate [ Sitting] Pulse Rate [ Standing] Pulse Rate [ Supine] Respiratory 20 Rate Blood Pressure 84/49 74/50 83/51 Blood Pressure [Sitting] Blood Pressure [Standing] Blood Pressure [Supine] O2 Sat by Pulse 93 L 93 L 95 Oximetry 05/18/18 05/18/18 05/18/18 20:30 20:45 21:00 Temperature Pulse Rate 64 74 Pulse Rate [ Sitting] Pulse Rate [ Standing] Pulse Rate [ Supine] Respiratory 20 29 H Rate Blood Pressure 83/51 101/60 120/72 Blood Pressure [Sitting] Blood Pressure [Standing] Blood Pressure [Supine] O2 Sat by Pulse 95 97 Oximetry 05/18/18 05/18/18 21:59 22:06 Temperature Pulse Rate 78 Pulse Rate [ 74 Sitting] Pulse Rate [ 81 Standing] Pulse Rate [ 70 Supine] Respiratory 18 Rate Blood Pressure 97/61 Blood Pressure 110/73 [Sitting] Blood Pressure 120/95 [Standing] Blood Pressure 97/64 [Supine] O2 Sat by Pulse 97 Oximetry EKG Findings - EKG Comments: EKG Findings:: EKG shows normal sinus rhythm with a rate of 65 bpm, OH interval 138, QRS 90, QTC 426. There is less than [address] segments of lead V1 which are nonspecific with no reciprocal depressions. Medical Decision Making - Medical Decision Making Laboratory studies showed that there is no leukocytosis and electrolytes are relatively within normal limits. EKG also was unremarkable and troponin was not elevated. TSH was elevated at 13.9 patient is aware of this and this is not appear to be myxedema coma as the patient was fluid responsive and there is no evidence of hypothermia, bradycardia or pretibial edema. Urinalysis was positive for infection and it is unclear whether this is contributory to the patient's presyncopal type symptoms. Nonetheless, the patient was given a prescription for Bactrim and urine culture sent. His explained to the patient that this appears to be secondary to vasovagal response but other pathology cannot be completely excluded and therefore she needs to be seen by her PCP in next 1-2 days. Patient stated that she was agreeable plan and that she would follow-up with them. Prior to discharge, the patient was ambulating throughout the emergency department without difficulty and noted to be orthostatic negative. - Lab Data Result diagrams: 05/18/18 20:20 05/18/18 20:20 Lab Results 05/18/18 05/18/18 05/18/18 Range/Units 20:20 20:20 20:20 WBC 10.6 (3.8-10.6) k/uL RBC 5.02 (3.80-5.40) m/uL Hgb 15.6 (11.4-16.0) gm/dL Hct 46.3 H (34.0-46.0) % MCV 92.2 (80.0-100.0) fL MCH 31.0 (25.0-35.0) pg MCHC 33.6 (31.0-37.0) g/dL RDW 13.3 (11.5-15.5) % Plt Count 346 (150-450) k/uL Neutrophils % 54 % Lymphocytes % 32 % Monocytes % 5 % Eosinophils % 6 % Basophils % 0 % Neutrophils # 5.8 (1.3-7.7) k/uL Lymphocytes # 3.4 (1.0-4.8) k/uL Monocytes # 0.6 (0-1.0) k/uL Eosinophils # 0.7 (0-0.7) k/uL Basophils # 0.0 (0-0.2) k/uL Sodium 139 (137-145) mmol/L Potassium 5.0 (3.5-5.1) mmol/L Chloride 109 H (98-107) mmol/L Carbon Dioxide 22 (22-30) mmol/L Anion Gap 8 mmol/L BUN 18 H (7-17) mg/dL Creatinine 0.71 (0.52-1.04) mg/dL Est GFR (CKD-EPI)AfAm >90 (>60 ml/min/1.73 sqM) Est GFR (CKD-EPI)NonAf >90 (>60 ml/min/1.73 sqM) Glucose 93 (74-99) mg/dL Calcium 9.8 (8.4-10.2) mg/dL Magnesium 1.9 (1.6-2.3) mg/dL Total Bilirubin 1.2 (0.2-1.3) mg/dL AST 37 H (14-36) U/L ALT 11 (9-52) U/L Alkaline Phosphatase 66 (38-126) U/L Total Creatine Kinase 57 (30-135) U/L CK-MB (CK-2) 0.6 (0.0-2.4) ng/mL CK-MB (CK-2) Rel Index 1.1 Troponin I <0.012 (0.000-0.034) ng/mL Total Protein 7.7 (6.3-8.2) g/dL Albumin 4.5 (3.5-5.0) g/dL TSH 13.900 H (0.465-4.680) mIU/L Free T4 0.63 L (0.78-2.19) ng/dL Urine Color Urine Appearance (Clear) Urine pH (5.0-8.0) Ur Specific Hurley (1.001-1.035) Urine Protein (Negative) Urine Glucose (UA) (Negative) Urine Ketones (Negative) Urine Blood (Negative) Urine Nitrite (Negative) Urine Bilirubin (Negative) Urine Urobilinogen (<2.0) mg/dL Ur Leukocyte Esterase (Negative) Urine WBC (0-5) /hpf Ur Squamous Epith Cells (0-4) /hpf Hyaline Casts (0-2) /lpf Urine Mucus (None) /hpf 05/18/18 Range/Units 21:10 WBC (3.8-10.6) k/uL RBC (3.80-5.40) m/uL Hgb (11.4-16.0) gm/dL Hct (34.0-46.0) % MCV (80.0-100.0) fL MCH (25.0-35.0) pg MCHC (31.0-37.0) g/dL RDW (11.5-15.5) % Plt Count (150-450) k/uL Neutrophils % % Lymphocytes % % Monocytes % % Eosinophils % % Basophils % % Neutrophils # (1.3-7.7) k/uL Lymphocytes # (1.0-4.8) k/uL Monocytes # (0-1.0) k/uL Eosinophils # (0-0.7) k/uL Basophils # (0-0.2) k/uL Sodium (137-145) mmol/L Potassium (3.5-5.1) mmol/L Chloride (98-107) mmol/L Carbon Dioxide (22-30) mmol/L Anion Gap mmol/L BUN (7-17) mg/dL Creatinine (0.52-1.04) mg/dL Est GFR (CKD-EPI)AfAm (>60 ml/min/1.73 sqM) Est GFR (CKD-EPI)NonAf (>60 ml/min/1.73 sqM) Glucose (74-99) mg/dL Calcium (8.4-10.2) mg/dL Magnesium (1.6-2.3) mg/dL Total Bilirubin (0.2-1.3) mg/dL AST (14-36) U/L ALT (9-52) U/L Alkaline Phosphatase (38-126) U/L Total Creatine Kinase (30-135) U/L CK-MB (CK-2) (0.0-2.4) ng/mL CK-MB (CK-2) Rel Index Troponin I (0.000-0.034) ng/mL Total Protein (6.3-8.2) g/dL Albumin (3.5-5.0) g/dL TSH (0.465-4.680) mIU/L Free T4 (0.78-2.19) ng/dL Urine Color Yellow Urine Appearance Cloudy H (Clear) Urine pH 6.0 (5.0-8.0) Ur Specific Hur[place] 1.022 (1.001-1.035) Urine Protein 1+ H (Negative) Urine Glucose (UA) Negative (Negative) Urine Ketones Negative (Negative) Urine Blood Negative (Negative) Urine Nitrite Negative (Negative) Urine Bilirubin Negative (Negative) Urine Urobilinogen 2.0 (<2.0) mg/dL Ur Leukocyte Esterase Moderate H (Negative) Urine WBC 14 H (0-5) /hpf Ur Squamous Epith Cells 2 (0-4) /hpf Hyaline Casts 400 H (0-2) /lpf Urine Mucus Many H (None) /hpf Disposition Clinical Impression: Pre-syncope, UTI (urinary tract infection), Elevated TSH Disposition: HOME SELF-CARE Condition: Good Instructions: Urinary Tract Infection in Women (ED), Syncope (ED) Prescriptions: Sulfamethox-Tmp 800-160Mg [Bactrim DS 800-160 mg] 1 tab PO Q12HR 3 Days #6 tab Is patient prescribed a controlled substance at d/c from ED?: No Referrals: Avery Connor DO [Primary Care Provider] - 1-2 days Time of Disposition: 22:22
[2018-05-18 20:30] LABS: Basophils % (A) 0 %; Eosinophils # (A) 0.7 k/uL (0-0.7); Eosinophils % (A) 6 %; HCT 46.3 % (34.0-46.0); HGB 15.6 gm/dL (11.4-16.0); Lymphocytes # (A) 3.4 k/uL (1.0-4.8); Lymphocytes % (A) 32 %; MCHC 33.6 g/dL (31.0-37.0); MCV 92.2 fL (80.0-100.0); Mean Platelet Volume 7.1; Monocytes # (A) 0.6 k/uL (0-1.0); Monocytes % (A) 5 %; Neutrophils # (A) 5.8 k/uL (1.3-7.7); Neutrophils % (A) 54 %; Platelet Count 346 k/uL (150-450); RBC 5.02 m/uL (3.80-5.40); RDW 13.3 % (11.5-15.5); WBC 10.6 k/uL (3.8-10.6)
[2018-05-18 20:39] LABS: Albumin 4.5 g/dL (3.5-5.0); Anion Gap 8 mmol/L; Blood Urea Nitrogen 18 mg/dL (7-17); Calcium 9.8 mg/dL (8.4-10.2); Carbon Dioxide 22 mmol/L (22-30); Chloride 109 mmol/L (98-107); Glucose 93 mg/dL (74-99); Sodium 139 mmol/L (137-145); Total Bilirubin 1.2 mg/dL (0.2-1.3)
[2018-05-18 20:41] LABS: ALT 11 U/L (9-52); AST 37 U/L (14-36); Magnesium 1.9 mg/dL (1.6-2.3); Total Protein 7.7 g/dL (6.3-8.2)
[2018-05-18 20:42] LABS: Alkaline Phosphatase 66 U/L (38-126)
[2018-05-18 20:45] LABS: Creatine Kinase 57 U/L (30-135)
[2018-05-18 20:58] LABS: Creatine Kinase MB 0.6 ng/mL (0.0-2.4); Troponin I <0.012 ng/mL (0.000-0.034)
[2018-05-18 21:32] LABS: Appearance,Urine Cloudy (Clear); Bilirubin,Urine Negative (Negative); Blood,Urine Negative (Negative); Color,Urine Yellow; Glucose,Urine (UA) Negative (Negative); Hyaline Casts,Urine 400 /lpf (0-2); Ketones,Urine Negative (Negative); Leukocyte Esterase,Urine Moderate (Negative); Mucus,Urine Many /hpf; Nitrite,Urine Negative (Negative); Protein,Urine 1+ (Negative); Specific Gravity,Urine 1.022 (1.001-1.035); Squamous Epithelial Cell,Urine 2 /hpf (0-4); WBC,Urine 14 /hpf (0-5)
[2018-05-18 22:01] VITALS: RESP 18
[2018-05-18 22:08] VITALS: BP 97/64; PULSE 70
[2018-05-18 22:09] LABS: T4, Free (Free Thyroxine) 0.63 ng/dL (0.78-2.19)
== END 2018-05-18 22:34 | disposition home or self-care (01) ==
LOC: EC 20:01
DX: N39.0 Urinary tract infection, site not specified (principal); R94.6 Abnormal results of thyroid function studies; R55 Syncope and collapse; H53.8 Other visual disturbances; J44.9 Chronic obstructive pulmonary disease, unspecified; F17.200 Nicotine dependence, unspecified, uncomplicated; Z88.1 Allergy status to other antibiotic agents; Z88.6 Allergy status to analgesic agent; Z79.51 Long term (current) use of inhaled steroids; Z53.8 Procedure and treatment not carried out for other reasons
CPT/HCPCS: 36415; 80053; 81001; 82550; 82553; 83735; 84439; 84443; 84484; 85025; 96360; 96361; 99284

== ENCOUNTER 2018-06-24 17:45 | Emergency (ER) | payer OTHER ==
[2018-06-24 18:04] VITALS: TEMP 98.3
[2018-06-24] MEDS ORDERED: SODIUM CHLORIDE 0.9% 1,000 ML IV STA ×3 (18:41→21:00)
[2018-06-24] MEDS ORDERED: ONDANSETRON 4 MG/2 ML VIAL IVP STA (18:41)
[2018-06-24] MEDS ORDERED: FAMOTIDINE 20 MG/2 ML VIAL IV STA (18:42)
--- NOTE | 2018-06-24 19:54 | ED ---
General Adult HPI - General Source: patient, RN notes reviewed, old records reviewed Mode of arrival: ambulatory Limitations: no limitations <Carlos Horton - Last Filed: 06/24/18 21:41> <Davis Ta - Last Filed: 06/24/18 22:55> - General Chief complaint: Nausea/Vomiting/Diarrhea Stated complaint: abdominal pain/vomiting - History of Present Illness Initial comments: 48-year-old female patient past medical history of COPD presents to ED after sustaining approximately 12 hours of nausea and vomiting history. Patient got off a cruise ship yesterday, driving back from [place] patient became nauseous, had approximately 8 episodes of emesis on drive home. Patient is not having diarrhea. The patient has not had any nausea vomiting or diarrhea. Patient states that her stomach still feels mildly upset. Patient has been able to eat a Magdy diet today and drink vernors. Patient denies abdominal pain , chest pain, shortness of breath, dysuria, rhinitis, fever/chills, cough/ congestion. Systemic: Pt denies fatigue, myalgia, fever/chills, rash. Pt denies weakness, night sweats, weight loss. Neuro: Pt denies headache, visual disturbances, syncope or pre-syncope. Denies new onset paresthesias. HEENT: Pt denies ocular discharge or irritation, otalgia, rhinorrhea, pharyngitis or notable lymphadenopathy. Cardiopulmonary: Pt denies chest pain, pleuritic chest pain, SOB, heart palpitations, dyspnea on exertion. Abdominal/GI: Pt denies abdominal pain. : Pt denies dysuria, burning w/ urination, frequency/urgency. Denies new onset urinary or bowel incontinence. MSK: Pt denies myalgia, loss of strength or function in extremities. (Carlos Horton) - Related Data Home Medications Medication Instructions Recorded Confirmed ALPRAZolam [Xanax] 1 mg PO DAILY PRN 01/12/15 06/24/18 Albuterol Inhaler [Ventolin Hfa 1 - 2 puff INHALATION RT-Q6H PRN 01/12/15 Inhaler] Budesonide/Formoterol Fumarate 2 puff INHALATION RT-BID 01/12/15 06/24/18 [Symbicort 160-4.5 Mcg Inhaler] Ibuprofen [Motrin] 800 mg PO Q6HR PRN 06/24/18 06/24/18 Previous Rx's Medication Instructions Recorded Ondansetron Odt [Zofran ODT] 4 mg PO Q8HR PRN #20 tab 06/02/17 Ondansetron [Zofran] 4 mg PO Q8HR PRN #15 tab 06/24/18 Allergies Allergy/AdvReac Type Severity Reaction Status Date / Time clarithromycin [From Biaxin] Allergy Unknown Verified 06/24/18 18:26 doxycycline Allergy Rash/Hives Verified 06/24/18 18:26 aspirin AdvReac Nausea & Verified 06/24/18 18:26 Vomiting Review of Systems ROS Other: All systems not noted in ROS Statement are negative. <Carlos Horton - Last Filed: 06/24/18 21:41> ROS Other: All systems not noted in ROS Statement are negative. <Davis Ta - Last Filed: 06/24/18 22:55> ROS Statement: Those systems with pertinent positive or pertinent negative responses have been documented in the HPI. Past Medical History Past Medical History: COPD, GERD/Reflux, Vascular Disorder Additional Past Medical History / Comment(s): PUD, DDD, chronic low back pain, cervical pain, bronchitis, hyperthyroidism. History of Any Multi-Drug Resistant Organisms: None Reported Past Surgical History: Cholecystectomy, Tubal Ligation Additional Past Surgical History / Comment(s): Laparoscopic cholecystectomy 1999 , EGD 2012. Past Anesthesia/Blood Transfusion Reactions: No Reported Reaction Past Psychological History: No Psychological Hx Reported Smoking Status: Current every day smoker Past Alcohol Use History: Rare Past Drug Use History: None Reported - Past Family History Mother Family Medical History: Coronary Artery Disease (CAD), Myocardial Infarction ([place] ) Additional Family Medical History / Comment(s): Mother is 78yrs old. Father Family Medical History: GERD/Reflux Additional Family Medical History / Comment(s): Father is 78yrs old. Brother(s) Family Medical History: No Reported History Daughter(s) Family Medical History: No Reported History Son(s) Family Medical History: No Reported History <Carlos Horton - Last Filed: 06/24/18 21:41> General Exam Limitations: no limitations <Carlos Horton - Last Filed: 06/24/18 21:41> <Davis Ta - Last Filed: 06/24/18 22:55> - General Exam Comments Initial Comments: Constitutional: NAD, AOX3, Pt has pleasant affect. HEENT: NC/AT, trachea midline, neck supple, no lymphadenopathy. Posterior pharynx non erythematous, without exudates. External ears appear normal, without discharge. Mucous membranes moist. Eyes PERRLA, EOM intact. There is no scleral icterus. No pallor noted. Cardiopulmonary: RRR, no murmurs, rubs or gallops, no JVD noted. Lungs CTAB in anterior and posterior fitzpatrick. No peripheral edema. Abdominal exam: Abdomen soft and non-distended. Abdomen non-tender to palpation in all 4 quadrants, nontender epigastric region. Bowel sounds active in LLQ. No hepatosplenomegaly. No ecchymosis, cullens and sosa jerez sign negative. Neuro: CN II-XII grossly intact. No Focal deficit, no facial droop. MSK: Full active ROM in upper and lower extremities. Pt ambulatory. Full sensation in active and lower extremities. Radial pulse +2 bilaterally, posterior tibialis pulse +2 bilaterally. Homans sign negative bilaterally. (Carlos Horton) Vital Signs 06/24/18 06/24/18 18:00 21:27 Temperature 98.3 F Pulse Rate 67 62 Respiratory 18 16 Rate Blood Pressure 155/101 160/90 O2 Sat by Pulse 97 99 Oximetry Medical Decision Making - Lab Data Result diagrams: 06/24/18 20:24 06/24/18 20:24 - EKG Data -: EKG Interpreted by Ma <Carlos Horton - Last Filed: 06/24/18 21:41> - Lab Data Result diagrams: 06/24/18 20:24 06/24/18 20:24 <Davis Ta - Last Filed: 06/24/18 22:55> - Medical Decision Making 48-year-old female patient presents to ED after having approximately 12 hours of nausea vomiting yesterday. Patient denies any nausea vomiting today. Patient was recently on a cruise throughout [place]. Physical exam did not display acute pathology, patient abdomen nontender to palpation, no ecchymoses. Patient was given fluids, Zofran, Pepcid partially relieved symptoms. Laboratory evaluations were then conducted which revealed a lipase of 775. Patient diagnosed with pancreatitis. EKG was not suspicious for acute ischemia. (Carlos Horton) - Lab Data Lab Results 06/24/18 06/24/18 Range/Units 20:24 20:24 WBC 8.5 (3.8-10.6) k/uL RBC 5.03 (3.80-5.40) m/uL Hgb 15.5 (11.4-16.0) gm/dL Hct 46.3 H (34.0-46.0) % MCV 92.1 (80.0-100.0) fL MCH 30.8 (25.0-35.0) pg MCHC 33.5 (31.0-37.0) g/dL RDW 13.3 (11.5-15.5) % Plt Count 280 (150-450) k/uL Neutrophils % 64 % Lymphocytes % 27 % Monocytes % 5 % Eosinophils % 2 % Basophils % 0 % Neutrophils # 5.5 (1.3-7.7) k/uL Lymphocytes # 2.3 (1.0-4.8) k/uL Monocytes # 0.4 (0-1.0) k/uL Eosinophils # 0.2 (0-0.7) k/uL Basophils # 0.0 (0-0.2) k/uL Sodium 140 (137-145) mmol/L Potassium 3.5 (3.5-5.1) mmol/L Chloride 108 H (98-107) mmol/L Carbon Dioxide 23 (22-30) mmol/L Anion Gap 9 mmol/L BUN 20 H (7-17) mg/dL Creatinine 0.54 (0.52-1.04) mg/dL Est GFR (CKD-EPI)AfAm >90 (>60 ml/min/1.73 sqM) Est GFR (CKD-EPI)NonAf >90 (>60 ml/min/1.73 sqM) Glucose 98 (74-99) mg/dL Calcium 9.2 (8.4-10.2) mg/dL Total Bilirubin 1.0 (0.2-1.3) mg/dL AST 31 (14-36) U/L ALT 30 (9-52) U/L Alkaline Phosphatase 69 (38-126) U/L Total Protein 7.1 (6.3-8.2) g/dL Albumin 4.0 (3.5-5.0) g/dL Lipase 775 H (23-300) U/L - EKG Data EKG Comments: Ventricular rate 62, [place] interval 128, QRS 84, QT/QTc 436 at 442. Normal sinus rhythm, possible left atrial enlargement. No signs for acute ischemia. (Carlos Horton) Disposition Is patient prescribed a controlled substance at d/c from ED?: No Time of Disposition: 21:14 <Carlos Horton - Last Filed: 06/24/18 21:41> <Davis Ta - Last Filed: 06/24/18 22:55> Clinical Impression: Pancreatitis Disposition: HOME SELF-CARE Condition: Good Instructions: Pancreatitis (ED) Additional Instructions: Patient to adhere to previously discussed treatment plan and will take medication(s) as directed. Patient to follow up with PCP in 1-2 days. Patient to return to ED if symptoms do not improve. Prescriptions: Ondansetron [Zofran] 4 mg PO Q8HR PRN #15 tab PRN Reason: Nausea Referrals: Avery Connor DO [Primary Care Provider] - 1-2 days Adilia Duenas MD [STAFF PHYSICIAN] - 1-2 days
[2018-06-24 20:41] LABS: Basophils % (A) 0 %; Eosinophils # (A) 0.2 k/uL (0-0.7); Eosinophils % (A) 2 %; HCT 46.3 % (34.0-46.0); HGB 15.5 gm/dL (11.4-16.0); Lymphocytes # (A) 2.3 k/uL (1.0-4.8); Lymphocytes % (A) 27 %; MCH 30.8 pg (25.0-35.0); MCHC 33.5 g/dL (31.0-37.0); MCV 92.1 fL (80.0-100.0); Monocytes # (A) 0.4 k/uL (0-1.0); Monocytes % (A) 5 %; Neutrophils # (A) 5.5 k/uL (1.3-7.7); Neutrophils % (A) 64 %; Platelet Count 280 k/uL (150-450); RBC 5.03 m/uL (3.80-5.40); RDW 13.3 % (11.5-15.5); WBC 8.5 k/uL (3.8-10.6)
[2018-06-24 20:50] LABS: ALT 30 U/L (9-52); AST 31 U/L (14-36); Alkaline Phosphatase 69 U/L (38-126); Anion Gap 9 mmol/L; Blood Urea Nitrogen 20 mg/dL (7-17); Calcium 9.2 mg/dL (8.4-10.2); Carbon Dioxide 23 mmol/L (22-30); Chloride 108 mmol/L (98-107); Glucose 98 mg/dL (74-99); Lipase 775 U/L (23-300); Potassium 3.5 mmol/L (3.5-5.1); Sodium 140 mmol/L (137-145); Total Protein 7.1 g/dL (6.3-8.2)
[2018-06-24] MEDS ORDERED: MORPHINE SULFATE 4 MG/ML SYRINGE IV STA (21:15)
--- NOTE | 2018-06-24 22:30 | CT ---
EXAMINATION TYPE: CT abdomen pelvis w con DATE OF EXAM: 06/24/2018 COMPARISON: None available HISTORY: abdominal pain, vomiting after being [place] of [place] for [place] CT DLP: 504.4 mGycm Automated exposure control for dose reduction was used. TECHNIQUE: Helical acquisition of images was performed from the lung bases through the pelvis. CONTRAST: Performed without Oral Contrast and with IV Contrast, patient injected with 100 mL of Isovue 300. FINDINGS: Lung bases are clear. There is no pleural effusion. Heart size is normal. Liver spleen pancreas appear normal. There are clips from cholecystectomy. Bile ducts are not dilated . There is no adrenal mass. Kidneys show satisfactory contrast opacification. There is no hydronephro sis. There is no retroperitoneal adenopathy. Bladder distends smoothly. There is no sign of pelvic ma ss. There is no inguinal hernia. There is no free fluid in the pelvis. I see no intestinal wall thick ening. There are no dilated loops. The bony structures appear intact. There is no mesenteric edema or adenopathy. IMPRESSION: NEGATIVE CT SCAN OF THE ABDOMEN AND PELVIS. I DO NOT SEE A CAUSE FOR ABDOMINAL PAIN.
--- NOTE | 2018-06-24 22:51 | XR ---
EXAM: XR Chest, 2 Views CLINICAL HISTORY: ITS.REASON XR Reason: Pain TECHNIQUE: Frontal and lateral views of the chest. COMPARISON: No relevant prior studies available. FINDINGS: Lungs: Unremarkable. No consolidation. Pleural space: Unremarkable. No pneumothorax. Heart: Unremarkable. No cardiomegaly. Mediastinum: Unremarkable. Bones/joints: Unremarkable. IMPRESSION: Normal chest x-rays.
[2018-06-24 23:31] VITALS: BP 164/75; PULSE 54; RESP 21
== END 2018-06-24 23:37 | disposition home or self-care (01) ==
LOC: EC 17:45
DX: K85.90 Acute pancreatitis without necrosis or infection, unspecified (principal); J44.9 Chronic obstructive pulmonary disease, unspecified; F17.200 Nicotine dependence, unspecified, uncomplicated; Z79.51 Long term (current) use of inhaled steroids; Z79.899 Other long term (current) drug therapy; Z88.1 Allergy status to other antibiotic agents; Z88.6 Allergy status to analgesic agent; Z90.49 Acquired absence of other specified parts of digestive tract
CPT/HCPCS: 36415; 93005; 80053; 83690; 85025; 71046; 74177; 99285; 96374; 96375; 96361 ×4; J2405; Q9967

== ENCOUNTER 2018-12-06 15:08 | Emergency (ER) | payer OTHER ==
[2018-12-06] MEDS ORDERED: SUCRALFATE 1 GM TAB PO STA (15:28)
[2018-12-06] MEDS ORDERED: ONDANSETRON 4 MG/2 ML VIAL IVP STA (15:28)
[2018-12-06] MEDS ORDERED: FAMOTIDINE 20 MG/2 ML VIAL IV STA (15:28)
[2018-12-06] MEDS ORDERED: SODIUM CHLORIDE 0.9% 1,000 ML IV ONE ×2 (15:28→17:11)
--- NOTE | 2018-12-06 15:33 | ED ---
General Adult HPI - General Chief complaint: Nausea/Vomiting/Diarrhea Stated complaint: Vomiting Time Seen by Provider: 12/06/18 15:19 Source: patient Mode of arrival: ambulatory Limitations: no limitations - History of Present Illness Initial comments: Patient is a 38-year-old female presents with a chief complaint of nausea and vomiting for 2 days. She states that she cannot identify an inciting incident. There are no aggravating or alleviating factors. She states that she has a dull cramping sensation for abdomen. She has a history of PUD but does not take anything for this regularly. She has not tried any medications at home. She denies any fevers or chills, chest pain, or shortness of breath. Bowel movements have been normal. - Related Data Home Medications Medication Instructions Recorded Confirmed ALPRAZolam [Xanax] 1 mg PO DAILY PRN 01/12/15 12/06/18 Albuterol Inhaler [Ventolin Hfa 1 - 2 puff INHALATION RT-Q6H PRN 01/12/15 12/06/18 Inhaler] Budesonide/Formoterol Fumarate 2 puff INHALATION RT-BID 01/12/15 12/06/18 [Symbicort 160-4.5 Mcg Inhaler] Previous Rx's Medication Instructions Recorded Ondansetron Odt [Zofran Odt] 4 mg PO Q8HR PRN #12 tab 12/06/18 Ranitidine HCl [Zantac] 150 mg PO DAILY #20 tab 12/06/18 Sucralfate [Carafate] 1 gm PO ACHS #20 tablet 12/06/18 Allergies Allergy/AdvReac Type Severity Reaction Status Date / Time clarithromycin [From Biaxin] Allergy Unknown Verified 12/06/18 15:47 doxycycline Allergy Rash/Hives Verified 12/06/18 15:47 aspirin AdvReac Nausea & Verified 12/06/18 15:47 Vomiting Review of Systems ROS Statement: Those systems with pertinent positive or pertinent negative responses have been documented in the HPI. ROS Other: All systems not noted in ROS Statement are negative. Gastrointestinal: Reports: abdominal pain, nausea, vomiting Past Medical History Past Medical History: COPD, GERD/Reflux, Vascular Disorder Additional Past Medical History / Comment(s): PUD, DDD, chronic low back pain, cervical pain, bronchitis, hyperthyroidism. History of Any Multi-Drug Resistant Organisms: None Reported Past Surgical History: Cholecystectomy, Tubal Ligation Additional Past Surgical History / Comment(s): Laparoscopic cholecystectomy 2000, EGD 2012. Past Anesthesia/Blood Transfusion Reactions: No Reported Reaction Past Psychological History: No Psychological Hx Reported Smoking Status: Current every day smoker Past Alcohol Use History: Rare Past Drug Use History: None Reported - Past Family History Mother Family Medical History: Coronary Artery Disease (CAD), Myocardial Infarction ([place]) Additional Family Medical History / Comment(s): Mother is 78yrs old. Father Family Medical History: GERD/Reflux Additional Family Medical History / Comment(s): Father is 78yrs old. Brother(s) Family Medical History: No Reported History Daughter(s) Family Medical History: No Reported History Son(s) Family Medical History: No Reported History General Exam Limitations: no limitations General appearance: alert, in no apparent distress Head exam: Present: atraumatic, normocephalic Eye exam: Present: normal appearance ENT exam: Present: normal exam Neck exam: Present: normal inspection Respiratory exam: Present: normal lung sounds bilaterally. Absent: respiratory distress, wheezes Cardiovascular Exam: Present: regular rate, normal rhythm GI/Abdominal exam: Present: soft. Absent: distended, tenderness Rectal exam: Present: deferred Extremities exam: Present: normal inspection Back exam: Present: normal inspection Neurological exam: Present: alert, oriented X3 Psychiatric exam: Present: normal affect, normal mood Skin exam: Present: warm, dry, intact Course Vital Signs 12/06/18 15:10 Temperature 98.3 F Pulse Rate 61 Respiratory 18 Rate Blood Pressure 149/86 O2 Sat by Pulse 100 Oximetry Medical Decision Making - Medical Decision Making Patient presents with a chief complaint of nausea and vomiting. Initial evaluation, vitals are stable, patient is in no acute distress. She is ambulatory without assistance and daily awake and alert. She'll be evaluated basically including liver profile and lipase. She was given Zofran, Pepcid, Carafate, and IV fluids. Patient is a daily smoker, we will get an EKG, she does not have any previous cardiac history, denying chest pain or shortness of breath today. 3:59 PM EKG performed at 1551 shows sinus rhythm with sinus arrhythmia. Ventricular rate is 61 bpm, segments are within normal limits. EKG is somewhat suboptimal secondary to a wandering baseline however V2 shows biphasic T-wave morphology. Patient denies any chest pain at any point however she will be evaluated now with one troponin though I doubt cardiac etiology of the patient's present symptoms. 6:01 PM Evaluation of this patient is unremarkable for mildly elevated lipase, not within the limits of pancreatitis, a urinalysis that shows evidence of dehydration. There are 6 rbc's identified on urinalysis and some mucus however patient denies any vaginal bleeding, discharge, or vaginal pain. After 2 L of IV hydration and Zofran, patient states that she is feeling improved. At this time she is stable for discharge. She was instructed to follow up with primary care 1-2 days, return to the ED if symptoms worsen or change. She was specifically instructed to have a repeat urinalysis at follow-up to ensure resolution. - Lab Data Result diagrams: 12/06/18 15:40 12/06/18 15:40 Lab Results 12/06/18 12/06/18 12/06/18 Range/Units 15:40 15:40 15:40 WBC 9.2 (3.8-10.6) k/uL RBC 5.10 (3.80-5.40) m/uL Hgb 15.6 (11.4-16.0) gm/dL Hct 47.5 H (34.0-46.0) % MCV 93.1 (80.0-100.0) fL MCH 30.6 (25.0-35.0) pg MCHC 32.9 (31.0-37.0) g/dL RDW 13.2 (11.5-15.5) % Plt Count 338 (150-450) k/uL Neutrophils % 73 % Lymphocytes % 17 % Monocytes % 7 % Eosinophils % 2 % Basophils % 0 % Neutrophils # 6.7 (1.3-7.7) k/uL Lymphocytes # 1.6 (1.0-4.8) k/uL Monocytes # 0.7 (0-1.0) k/uL Eosinophils # 0.2 (0-0.7) k/uL Basophils # 0.0 (0-0.2) k/uL Sodium 138 (137-145) mmol/L Potassium 3.7 (3.5-5.1) mmol/L Chloride 104 (98-107) mmol/L Carbon Dioxide 23 (22-30) mmol/L Anion Gap 11 mmol/L BUN 18 H (7-17) mg/dL Creatinine 0.50 L (0.52-1.04) mg/dL Est GFR (CKD-EPI)AfAm >90 (>60 ml/min/1.73 sqM) Est GFR (CKD-EPI)NonAf >90 (>60 ml/min/1.73 sqM) Glucose 93 (74-99) mg/dL Calcium 9.9 (8.4-10.2) mg/dL Total Bilirubin 0.9 (0.2-1.3) mg/dL AST 25 (14-36) U/L ALT 20 (9-52) U/L Alkaline Phosphatase 75 (38-126) U/L Troponin I (0.000-0.034) ng/mL Total Protein 7.3 (6.3-8.2) g/dL Albumin 4.5 (3.5-5.0) g/dL Lipase 434 H (23-300) U/L HCG, Qual Not Detected Urine Color Yellow Urine Appearance Clear (Clear) Urine pH 6.0 (5.0-8.0) Ur Specific [place] 1.027 (1.001-1.035) Urine Protein 2+ H (Negative) Urine Glucose (UA) Negative (Negative) Urine Ketones 4+ H (Negative) Urine Blood Small H (Negative) Urine Nitrite Negative (Negative) Urine Bilirubin Negative (Negative) Urine Urobilinogen 2.0 (<2.0) mg/dL Ur Leukocyte Esterase Trace H (Negative) Urine RBC 6 H (0-5) /hpf Urine WBC 2 (0-5) /hpf Ur Squamous Epith Cells 1 (0-4) /hpf Urine Bacteria Rare H (None) /hpf Urine Mucus Moderate H (None) /hpf 12/06/18 Range/Units 15:40 WBC (3.8-10.6) k/uL RBC (3.80-5.40) m/uL Hgb (11.4-16.0) gm/dL Hct (34.0-46.0) % MCV (80.0-100.0) fL MCH (25.0-35.0) pg MCHC (31.0-37.0) g/dL RDW (11.5-15.5) % Plt Count (150-450) k/uL Neutrophils % % Lymphocytes % % Monocytes % % Eosinophils % % Basophils % % Neutrophils # (1.3-7.7) k/uL Lymphocytes # (1.0-4.8) k/uL Monocytes # (0-1.0) k/uL Eosinophils # (0-0.7) k/uL Basophils # (0-0.2) k/uL Sodium (137-145) mmol/L Potassium (3.5-5.1) mmol/L Chloride (98-107) mmol/L Carbon Dioxide (22-30) mmol/L Anion Gap mmol/L BUN (7-17) mg/dL Creatinine (0.52-1.04) mg/dL Est GFR (CKD-EPI)AfAm (>60 ml/min/1.73 sqM) Est GFR (CKD-EPI)NonAf (>60 ml/min/1.73 sqM) Glucose (74-99) mg/dL Calcium (8.4-10.2) mg/dL Total Bilirubin (0.2-1.3) mg/dL AST (14-36) U/L ALT (9-52) U/L Alkaline Phosphatase (38-126) U/L Troponin I <0.012 (0.000-0.034) ng/mL Total Protein (6.3-8.2) g/dL Albumin (3.5-5.0) g/dL Lipase (23-300) U/L HCG, Qual Urine Color Urine Appearance (Clear) Urine pH (5.0-8.0) Ur Specific [place] (1.001-1.035) Urine Protein (Negative) Urine Glucose (UA) (Negative) Urine Ketones (Negative) Urine Blood (Negative) Urine Nitrite (Negative) Urine Bilirubin (Negative) Urine Urobilinogen (<2.0) mg/dL Ur Leukocyte Esterase (Negative) Urine RBC (0-5) /hpf Urine WBC (0-5) /hpf Ur Squamous Epith Cells (0-4) /hpf Urine Bacteria (None) /hpf Urine Mucus (None) /hpf Disposition Clinical Impression: Abdominal pain, Nausea and vomiting in adult Disposition: HOME SELF-CARE Condition: Good Instructions (If sedation given, give patient instructions): Acute Nausea and Vomiting (ED) Prescriptions: Sucralfate [Carafate] 1 gm PO ACHS #20 tablet Ranitidine HCl [Zantac] 150 mg PO DAILY #20 tab Ondansetron Odt [Zofran Odt] 4 mg PO Q8HR PRN #12 tab PRN Reason: Nausea Is patient prescribed a controlled substance at d/c from ED?: No Referrals: Avery Connor DO [Primary Care Provider] - 1-2 days
[2018-12-06 15:48] LABS: Basophils % (A) 0 %; Eosinophils # (A) 0.2 k/uL (0-0.7); Eosinophils % (A) 2 %; HCT 47.5 % (34.0-46.0); HGB 15.6 gm/dL (11.4-16.0); Lymphocytes # (A) 1.6 k/uL (1.0-4.8); Lymphocytes % (A) 17 %; MCH 30.6 pg (25.0-35.0); MCHC 32.9 g/dL (31.0-37.0); MCV 93.1 fL (80.0-100.0); Mean Platelet Volume 6.4; Monocytes # (A) 0.7 k/uL (0-1.0); Monocytes % (A) 7 %; Neutrophils # (A) 6.7 k/uL (1.3-7.7); Neutrophils % (A) 73 %; Platelet Count 338 k/uL (150-450); RDW 13.2 % (11.5-15.5); WBC 9.2 k/uL (3.8-10.6)
[2018-12-06 15:56] LABS: Appearance,Urine Clear (Clear); Bacteria,Urine Rare /hpf; Bilirubin,Urine Negative (Negative); Blood,Urine Small (Negative); Color,Urine Yellow; Glucose,Urine (UA) Negative (Negative); HCG,Qualitative Serum Not Detected; Ketones,Urine 4+ (Negative); Leukocyte Esterase,Urine Trace (Negative); Mucus,Urine Moderate /hpf; Nitrite,Urine Negative (Negative); Protein,Urine 2+ (Negative); RBC,Urine 6 /hpf (0-5); Specific Gravity,Urine 1.027 (1.001-1.035); Squamous Epithelial Cell,Urine 1 /hpf (0-4); WBC,Urine 2 /hpf (0-5)
[2018-12-06 15:58] LABS: ALT 20 U/L (9-52); AST 25 U/L (14-36); Albumin 4.5 g/dL (3.5-5.0); Alkaline Phosphatase 75 U/L (38-126); Anion Gap 11 mmol/L; Blood Urea Nitrogen 18 mg/dL (7-17); Calcium 9.9 mg/dL (8.4-10.2); Carbon Dioxide 23 mmol/L (22-30); Chloride 104 mmol/L (98-107); Glucose 93 mg/dL (74-99); Lipase 434 U/L (23-300); Potassium 3.7 mmol/L (3.5-5.1); Sodium 138 mmol/L (137-145); Total Bilirubin 0.9 mg/dL (0.2-1.3); Total Protein 7.3 g/dL (6.3-8.2)
[2018-12-06 18:12] VITALS: RESP 16
[2018-12-06 18:56] VITALS: BP 154/79; PULSE 54; TEMP 99.4
== END 2018-12-06 19:21 | disposition home or self-care (01) ==
LOC: EC 15:08
DX: R11.2 Nausea with vomiting, unspecified (principal); R10.9 Unspecified abdominal pain; R19.7 Diarrhea, unspecified; R74.8 Abnormal levels of other serum enzymes; E86.0 Dehydration; J44.9 Chronic obstructive pulmonary disease, unspecified; F17.200 Nicotine dependence, unspecified, uncomplicated; Z87.11 Personal history of peptic ulcer disease; Z90.49 Acquired absence of other specified parts of digestive tract; Z98.51 Tubal ligation status; Z79.51 Long term (current) use of inhaled steroids; Z88.1 Allergy status to other antibiotic agents; Z88.6 Allergy status to analgesic agent
CPT/HCPCS: 36415; 93005; 80053; 83690; 84484; 85025; 81001; 84703; 99284; 96374; 96375; 96361 ×3; J2405

== ENCOUNTER 2019-04-14 12:09 | Emergency (ER) | payer OTHER ==
[2019-04-14 13:01] VITALS: RESP 18; TEMP 97.9
[2019-04-14] MEDS ORDERED: SODIUM CHLORIDE 0.9% 1,000 ML IV STA (13:41)
[2019-04-14] MEDS ORDERED: ONDANSETRON 4 MG/2 ML VIAL IVP STA (13:41)
[2019-04-14 14:05] LABS: Basophils # (A) 0.2 k/uL (0-0.2); Basophils % (A) 1 %; Eosinophils # (A) 0.1 k/uL (0-0.7); Eosinophils % (A) 1 %; HCT 44.8 % (34.0-46.0); HGB 14.9 gm/dL (11.4-16.0); Lymphocytes # (A) 1.4 k/uL (1.0-4.8); Lymphocytes % (A) 12 %; MCH 30.9 pg (25.0-35.0); MCHC 33.2 g/dL (31.0-37.0); Mean Platelet Volume 7.4; Monocytes # (A) 0.8 k/uL (0-1.0); Monocytes % (A) 7 %; Neutrophils # (A) 9.2 k/uL (1.3-7.7); Neutrophils % (A) 78 %; Platelet Count 342 k/uL (150-450); RBC 4.82 m/uL (3.80-5.40); RDW 13.1 % (11.5-15.5); WBC 11.7 k/uL (3.8-10.6)
[2019-04-14 14:13] LABS: ALT 14 U/L (9-52); AST 27 U/L (14-36); African American GFR (CKD) >90 (>60 ml/min/1.73 sqM); Alkaline Phosphatase 82 U/L (38-126); Amylase 91 U/L (30-110); Anion Gap 10 mmol/L; Blood Urea Nitrogen 17 mg/dL (7-17); Calcium 10.4 mg/dL (8.4-10.2); Carbon Dioxide 26 mmol/L (22-30); Chloride 104 mmol/L (98-107); Glucose 124 mg/dL (74-99); Potassium 4.1 mmol/L (3.5-5.1); Sodium 140 mmol/L (137-145); Total Bilirubin 0.7 mg/dL (0.2-1.3); Total Protein 8.5 g/dL (6.3-8.2)
[2019-04-14 14:16] LABS: Appearance,Urine Cloudy (Clear); Bilirubin,Urine Negative (Negative); Blood,Urine Moderate (Negative); Color,Urine Yellow; Glucose,Urine (UA) Trace (Negative); Ketones,Urine 2+ (Negative); Leukocyte Esterase,Urine Trace (Negative); Mucus,Urine Many /hpf; Nitrite,Urine Negative (Negative); Protein,Urine 2+ (Negative); RBC,Urine 15 /hpf (0-5); Specific Gravity,Urine 1.027 (1.001-1.035); Urobilinogen,Urine <2.0 mg/dL (<2.0); WBC,Urine 3 /hpf (0-5)
[2019-04-14] MEDS ORDERED: METOCLOPRAMIDE 5 MG/ML 2 ML VIAL IVP STA (14:40)
[2019-04-14] MEDS ORDERED: diphenhydrAMINE 50 MG/ML 1 ML VIAL IVP STA (14:40)
--- NOTE | 2019-04-14 14:59 | ED ---
General Adult HPI - General Chief complaint: Nausea/Vomiting/Diarrhea Stated complaint: vomiting Time Seen by Provider: 04/14/19 13:30 Source: patient Mode of arrival: ambulatory Limitations: no limitations - History of Present Illness Initial comments: 49-year-old female presents to the emergency department for chief complaint of nausea vomiting. This has been ongoing for years and comes in cycles. Patient states she has seen GI for this as well. States last night she vomited and it looked like salad and she had not eaten any solids that she wanted to be evaluated. Denies any abdominal pain. Denies any fevers or chills. Does admit to one episode of diarrhea.Patient has no other complaints at this time including shortness of breath, chest pain, abdominal pain, nausea or vomiting, headache, or visual changes. - Related Data Home Medications Medication Instructions Recorded Confirmed ALPRAZolam [Xanax] 1 mg PO TID PRN 01/12/15 04/14/19 Albuterol Inhaler [Ventolin Hfa 1 - 2 puff INHALATION RT-Q6H PRN 01/12/15 04/14/19 Inhaler] Budesonide/Formoterol Fumarate 2 puff INHALATION RT-BID 01/12/15 04/14/19 [Symbicort 160-4.5 Mcg Inhaler] Previous Rx's Medication Instructions Recorded Ondansetron Odt [Zofran Odt] 4 mg PO Q8HR PRN #12 tab 12/06/18 Allergies Allergy/AdvReac Type Severity Reaction Status Date / Time clarithromycin [From Biaxin] Allergy Unknown Verified 04/14/19 14:11 doxycycline Allergy Rash/Hives Verified 04/14/19 14:11 aspirin AdvReac Nausea & Verified 04/14/19 14:11 Vomiting Review of Systems ROS Statement: Those systems with pertinent positive or pertinent negative responses have been documented in the HPI. ROS Other: All systems not noted in ROS Statement are negative. Past Medical History Past Medical History: COPD, GERD/Reflux, Vascular Disorder Additional Past Medical History / Comment(s): PUD, DDD, chronic low back pain, cervical pain, bronchitis, hyperthyroidism. History of Any Multi-Drug Resistant Organisms: None Reported Past Surgical History: Cholecystectomy, Tubal Ligation Additional Past Surgical History / Comment(s): Laparoscopic cholecystectomy 1999, EGD 2012. Past Anesthesia/Blood Transfusion Reactions: No Reported Reaction Past Psychological History: No Psychological Hx Reported Smoking Status: Current every day smoker Past Alcohol Use History: Rare Past Drug Use History: Marijuana - Past Family History Mother Family Medical History: Coronary Artery Disease (CAD), Myocardial Infarction ([place]) Additional Family Medical History / Comment(s): Mother is 78yrs old. Father Family Medical History: GERD/Reflux Additional Family Medical History / Comment(s): Father is 78yrs old. Brother(s) Family Medical History: No Reported History Daughter(s) Family Medical History: No Reported History Son(s) Family Medical History: No Reported History General Exam Limitations: no limitations General appearance: alert, in no apparent distress Head exam: Present: atraumatic, normocephalic, normal inspection Eye exam: Present: normal appearance, PERRL, EOMI. Absent: scleral icterus, conjunctival injection, periorbital swelling ENT exam: Present: normal exam, mucous membranes moist Neck exam: Present: normal inspection, full ROM. Absent: tenderness, meningismus Respiratory exam: Present: normal lung sounds bilaterally. Absent: respiratory distress, wheezes, rales, rhonchi, stridor Cardiovascular Exam: Present: regular rate, normal rhythm, normal heart sounds. Absent: systolic murmur, diastolic murmur, rubs, gallop, clicks GI/Abdominal exam: Present: soft, normal bowel sounds. Absent: distended, tenderness (No tenderness in all 4 quadrants of the abdomen), guarding, rebound, rigid Neurological exam: Present: alert Psychiatric exam: Present: normal affect, normal mood Course Vital Signs 04/14/19 12:59 Temperature 97.9 F Pulse Rate 54 L Respiratory 18 Rate Blood Pressure 175/82 O2 Sat by Pulse 99 Oximetry Medical Decision Making - Medical Decision Making 49-year-old female presents to the emergency department for nausea and vomiting. Patient has a history of nausea and vomiting and states she has had multiple workups for this. She started vomiting again yesterday but it looked like salad and she had not had any solids I to the ER. Vitals are stable. Abdomen is soft and nontender. Again denies any abdominal pain. CBC shows a white blood cell count 11.7 which is likely secondary to vomiting. CMP unremarkable. Urinalysis does not show any significant evidence of infection however patient does have 2+ ketones in her urine and was given a liter of fluids. She was given Zofran and Reglan with improvement in symptoms. Patient will be discharged home to follow- up with primary care. She will return here if she has any worsening symptoms.I discussed this case with attending Dr. Sanz who agrees with this assessment and treatment plan. - Lab Data Result diagrams: 04/14/19 13:44 04/14/19 13:44 Lab Results 04/14/19 04/14/19 04/14/19 Range/Units 13:44 13:44 13:44 WBC 11.7 H (3.8-10.6) k/uL RBC 4.82 (3.80-5.40) m/uL Hgb 14.9 (11.4-16.0) gm/dL Hct 44.8 (34.0-46.0) % MCV 93.0 (80.0-100.0) fL MCH 30.9 (25.0-35.0) pg MCHC 33.2 (31.0-37.0) g/dL RDW 13.1 (11.5-15.5) % Plt Count 342 (150-450) k/uL Neutrophils % 78 % Lymphocytes % 12 % Monocytes % 7 % Eosinophils % 1 % Basophils % 1 % Neutrophils # 9.2 H (1.3-7.7) k/uL Lymphocytes # 1.4 (1.0-4.8) k/uL Monocytes # 0.8 (0-1.0) k/uL Eosinophils # 0.1 (0-0.7) k/uL Basophils # 0.2 (0-0.2) k/uL Sodium 140 (137-145) mmol/L Potassium 4.1 (3.5-5.1) mmol/L Chloride 104 (98-107) mmol/L Carbon Dioxide 26 (22-30) mmol/L Anion Gap 10 mmol/L BUN 17 (7-17) mg/dL Creatinine 0.58 (0.52-1.04) mg/dL Est GFR (CKD-EPI)AfAm >90 (>60 ml/min/1.73 sqM) Est GFR (CKD-EPI)NonAf >90 (>60 ml/min/1.73 sqM) Glucose 124 H (74-99) mg/dL Calcium 10.4 H (8.4-10.2) mg/dL Total Bilirubin 0.7 (0.2-1.3) mg/dL AST 27 (14-36) U/L ALT 14 (9-52) U/L Alkaline Phosphatase 82 (38-126) U/L Total Protein 8.5 H (6.3-8.2) g/dL Albumin 5.0 (3.5-5.0) g/dL Amylase 91 (30-110) U/L Lipase 76 (23-300) U/L Urine Color Yellow Urine Appearance Cloudy H (Clear) Urine pH 6.0 (5.0-8.0) Ur Specific [place] 1.027 (1.001-1.035) Urine Protein 2+ H (Negative) Urine Glucose (UA) Trace H (Negative) Urine Ketones 2+ H (Negative) Urine Blood Moderate H (Negative) Urine Nitrite Negative (Negative) Urine Bilirubin Negative (Negative) Urine Urobilinogen <2.0 (<2.0) mg/dL Ur Leukocyte Esterase Trace H (Negative) Urine RBC 15 H (0-5) /hpf Urine WBC 3 (0-5) /hpf Urine Mucus Many H (None) /hpf Disposition Clinical Impression: Nausea and vomiting Disposition: HOME SELF-CARE Condition: Good Instructions (If sedation given, give patient instructions): Acute Nausea and Vomiting (ED) Additional Instructions: Please continue take Zofran for nausea. Take small slips of liquids to remain hydrated. Follow up with primary care in 1-2 days. Return to the emergency department if you have any worsening symptoms. Is patient prescribed a controlled substance at d/c from ED?: No Referrals: Avery Connor DO [Primary Care Provider] - 1-2 days Time of Disposition: 14:58
[2019-04-14 15:19] VITALS: BP 168/73; PULSE 60
== END 2019-04-14 15:22 | disposition home or self-care (01) ==
LOC: EC 12:09
DX: R11.2 Nausea with vomiting, unspecified (principal); R82.4 Acetonuria; R19.7 Diarrhea, unspecified; J44.9 Chronic obstructive pulmonary disease, unspecified; F17.200 Nicotine dependence, unspecified, uncomplicated; Z88.1 Allergy status to other antibiotic agents; Z88.6 Allergy status to analgesic agent; Z79.51 Long term (current) use of inhaled steroids; Z87.19 Personal history of other diseases of the digestive system; Z90.49 Acquired absence of other specified parts of digestive tract; Z83.79 Family history of other diseases of the digestive system
CPT/HCPCS: 99284; 96374; 96375 ×2; 96361; 36415; 80053; 82150; 83690; 85025; 81001; J1200; J2765; J2405

== ENCOUNTER 2019-04-15 17:25 | Emergency (ER) | payer OTHER ==
[2019-04-15 17:37] VITALS: RESP 18
[2019-04-15] MEDS ORDERED: SODIUM CHLORIDE 0.9% 1,000 ML IV STA (18:52)
[2019-04-15] MEDS ORDERED: KETOROLAC 30 MG/ML 1 ML VIAL IVP STA (18:52)
[2019-04-15] MEDS ORDERED: diphenhydrAMINE 50 MG/ML 1 ML VIAL IVP STA (18:52)
[2019-04-15] MEDS ORDERED: METOCLOPRAMIDE 5 MG/ML 2 ML VIAL IVP STA (18:52)
--- NOTE | 2019-04-15 19:06 | ED ---
Abdominal Pain HPI - General Chief Complaint: Abdominal Pain Stated Complaint: abdominal & back pain-revisit Time Seen by Provider: 04/15/19 18:21 Source: patient, RN notes reviewed Mode of arrival: ambulatory Limitations: no limitations - History of Present Illness Initial Comments: 49-year-old female presents emergency Department with chief complaint of abdominal pain, nausea vomiting. Patient states she seen in emergency department yesterday states that she went home but symptoms worsened today. She denies increasing lower abdominal pain. States this started after he got up after going to the bathroom. She states that she is in no diarrhea no constipation denies any hematochezia no fevers or chills. No recent abdominal surgeries no history of bowel infections. Patient denies any chest pain or shortness breath. No sick contacts. - Related Data Home Medications Medication Instructions Recorded Confirmed ALPRAZolam [Xanax] 1 mg PO TID PRN 01/12/15 04/14/19 Albuterol Inhaler [Ventolin Hfa 1 - 2 puff INHALATION RT-Q6H PRN 01/12/15 04/14/19 Inhaler] Budesonide/Formoterol Fumarate 2 puff INHALATION RT-BID 01/12/15 04/14/19 [Symbicort 160-4.5 Mcg Inhaler] Previous Rx's Medication Instructions Recorded Ondansetron Odt [Zofran Odt] 4 mg PO Q8HR PRN #12 tab 12/06/18 Metoclopramide [Reglan] 10 mg PO TID PRN #15 tab 04/15/19 Ondansetron Odt [Zofran Odt] 4 mg PO Q8HR PRN #10 tab 04/15/19 Allergies Allergy/AdvReac Type Severity Reaction Status Date / Time clarithromycin [From Biaxin] Allergy Unknown Verified 04/15/19 18:36 doxycycline Allergy Rash/Hives Verified 04/15/19 18:36 aspirin AdvReac Nausea & Verified 04/15/19 18:36 Vomiting Review of Systems ROS Statement: Those systems with pertinent positive or pertinent negative responses have been documented in the HPI. ROS Other: All systems not noted in ROS Statement are negative. Past Medical History Past Medical History: COPD, GERD/Reflux, Vascular Disorder Additional Past Medical History / Comment(s): PUD, DDD, chronic low back pain, cervical pain, bronchitis, hyperthyroidism. History of Any Multi-Drug Resistant Organisms: None Reported Past Surgical History: Cholecystectomy, Tubal Ligation Additional Past Surgical History / Comment(s): Laparoscopic cholecystectomy 2000, EGD 2012. Past Anesthesia/Blood Transfusion Reactions: No Reported Reaction Past Psychological History: No Psychological Hx Reported Smoking Status: Current every day smoker Past Alcohol Use History: Rare Past Drug Use History: Marijuana - Past Family History Mother Family Medical History: Coronary Artery Disease (CAD), Myocardial Infarction ([place]) Additional Family Medical History / Comment(s): Mother is 78yrs old. Father Family Medical History: GERD/Reflux Additional Family Medical History / Comment(s): Father is 78yrs old. Brother(s) Family Medical History: No Reported History Daughter(s) Family Medical History: No Reported History Son(s) Family Medical History: No Reported History General Exam Limitations: no limitations General appearance: alert, in no apparent distress Head exam: Present: atraumatic, normocephalic, normal inspection Eye exam: Present: normal appearance, PERRL, EOMI. Absent: scleral icterus, conjunctival injection, periorbital swelling ENT exam: Present: normal exam, normal oropharynx, mucous membranes moist Neck exam: Present: normal inspection, full ROM. Absent: tenderness, meningismus, lymphadenopathy Respiratory exam: Present: normal lung sounds bilaterally. Absent: respiratory distress, wheezes, rales, rhonchi, stridor Cardiovascular Exam: Present: regular rate, normal rhythm, normal heart sounds. Absent: systolic murmur, diastolic murmur, rubs, gallop, clicks GI/Abdominal exam: Present: soft, tenderness (mild pubic tenderness), normal bowel sounds. Absent: distended, guarding, rebound, rigid Back exam: Absent: CVA tenderness (R), CVA tenderness (L) Neurological exam: Present: alert, oriented X3 Skin exam: Present: warm, dry, intact, normal color. Absent: rash Course Vital Signs 04/15/19 04/15/19 17:31 21:28 Temperature 98 F Pulse Rate 62 55 L Respiratory 18 18 Rate Blood Pressure 173/91 171/100 O2 Sat by Pulse 99 98 Oximetry Medical Decision Making - Medical Decision Making 49-year-old female presented for reexamination abdominal pain nausea vomiting. Patient had CT as is her second visit in complaint worsening pain CT is unremarkable as unremarkable. She does have mild dehydration and urinalysis. Patient was hydrated given antiemetics and will be discharged. - Lab Data Result diagrams: 04/15/19 19:36 04/15/19 19:36 Lab Results 04/15/19 04/15/19 04/15/19 Range/Units 19:36 19:36 19:36 WBC 10.8 H (3.8-10.6) k/uL RBC 4.94 (3.80-5.40) m/uL Hgb 15.6 (11.4-16.0) gm/dL Hct 44.6 (34.0-46.0) % MCV 90.3 (80.0-100.0) fL MCH 31.5 (25.0-35.0) pg MCHC 34.9 (31.0-37.0) g/dL RDW 15.6 H (11.5-15.5) % Plt Count 326 (150-450) k/uL Neutrophils % 70 % Lymphocytes % 20 % Monocytes % 7 % Eosinophils % 1 % Basophils % 1 % Neutrophils # 7.5 (1.3-7.7) k/uL Lymphocytes # 2.1 (1.0-4.8) k/uL Monocytes # 0.7 (0-1.0) k/uL Eosinophils # 0.1 (0-0.7) k/uL Basophils # 0.1 (0-0.2) k/uL Sodium 136 L (137-145) mmol/L Potassium 3.7 (3.5-5.1) mmol/L Chloride 99 (98-107) mmol/L Carbon Dioxide 24 (22-30) mmol/L Anion Gap 13 mmol/L BUN 16 (7-17) mg/dL Creatinine 0.59 (0.52-1.04) mg/dL Est GFR (CKD-EPI)AfAm >90 (>60 ml/min/1.73 sqM) Est GFR (CKD-EPI)NonAf >90 (>60 ml/min/1.73 sqM) Glucose 109 H (74-99) mg/dL Plasma Lactic Acid [place] 1.3 (0.7-2.0) mmol/L Calcium 10.0 (8.4-10.2) mg/dL Total Bilirubin 1.1 (0.2-1.3) mg/dL AST 26 (14-36) U/L ALT 16 (9-52) U/L Alkaline Phosphatase 84 (38-126) U/L Total Protein 8.0 (6.3-8.2) g/dL Albumin 4.8 (3.5-5.0) g/dL Amylase 151 H (30-110) U/L Lipase 160 (23-300) U/L Urine Color Urine Appearance (Clear) Urine pH (5.0-8.0) Ur Specific [place] (1.001-1.035) Urine Protein (Negative) Urine Glucose (UA) (Negative) Urine Ketones (Negative) Urine Blood (Negative) Urine Nitrite (Negative) Urine Bilirubin (Negative) Urine Urobilinogen (<2.0) mg/dL Ur Leukocyte Esterase (Negative) Urine RBC (0-5) /hpf Urine WBC (0-5) /hpf Urine Mucus (None) /hpf 04/15/19 Range/Units 19:36 WBC (3.8-10.6) k/uL RBC (3.80-5.40) m/uL Hgb (11.4-16.0) gm/dL Hct (34.0-46.0) % MCV (80.0-100.0) fL MCH (25.0-35.0) pg MCHC (31.0-37.0) g/dL RDW (11.5-15.5) % Plt Count (150-450) k/uL Neutrophils % % Lymphocytes % % Monocytes % % Eosinophils % % Basophils % % Neutrophils # (1.3-7.7) k/uL Lymphocytes # (1.0-4.8) k/uL Monocytes # (0-1.0) k/uL Eosinophils # (0-0.7) k/uL Basophils # (0-0.2) k/uL Sodium (137-145) mmol/L Potassium (3.5-5.1) mmol/L Chloride (98-107) mmol/L Carbon Dioxide (22-30) mmol/L Anion Gap mmol/L BUN (7-17) mg/dL Creatinine (0.52-1.04) mg/dL Est GFR (CKD-EPI)AfAm (>60 ml/min/1.73 sqM) Est GFR (CKD-EPI)NonAf (>60 ml/min/1.73 sqM) Glucose (74-99) mg/dL Plasma Lactic Acid [place] (0.7-2.0) mmol/L Calcium (8.4-10.2) mg/dL Total Bilirubin (0.2-1.3) mg/dL AST (14-36) U/L ALT (9-52) U/L Alkaline Phosphatase (38-126) U/L Total Protein (6.3-8.2) g/dL Albumin (3.5-5.0) g/dL Amylase (30-110) U/L Lipase (23-300) U/L Urine Color Yellow Urine Appearance Cloudy H (Clear) Urine pH 7.5 (5.0-8.0) Ur Specific [place] 1.024 (1.001-1.035) Urine Protein 2+ H (Negative) Urine Glucose (UA) Negative (Negative) Urine Ketones 3+ H (Negative) Urine Blood Small H (Negative) Urine Nitrite Negative (Negative) Urine Bilirubin Negative (Negative) Urine Urobilinogen 4.0 (<2.0) mg/dL Ur Leukocyte Esterase Negative (Negative) Urine RBC 21 H (0-5) /hpf Urine WBC 2 (0-5) /hpf Urine Mucus Many H (None) /hpf Disposition Clinical Impression: Nausea and vomiting, Abdominal pain Disposition: HOME SELF-CARE Condition: Stable Instructions (If sedation given, give patient instructions): Abdominal Pain (ED) Additional Instructions: Please return to the Emergency Department if symptoms worsen or any other concerns. Prescriptions: Metoclopramide [Reglan] 10 mg PO TID PRN #15 tab PRN Reason: GERD Ondansetron Odt [Zofran Odt] 4 mg PO Q8HR PRN #10 tab PRN Reason: Nausea Is patient prescribed a controlled substance at d/c from ED?: No Referrals: Avery Connor DO [Primary Care Provider] - 1-2 days Time of Disposition: 22:44
[2019-04-15 19:58] LABS: Basophils # (A) 0.1 k/uL (0-0.2); Basophils % (A) 1 %; Eosinophils # (A) 0.1 k/uL (0-0.7); Eosinophils % (A) 1 %; HCT 44.6 % (34.0-46.0); HGB 15.6 gm/dL (11.4-16.0); Lymphocytes # (A) 2.1 k/uL (1.0-4.8); Lymphocytes % (A) 20 %; MCH 31.5 pg (25.0-35.0); MCHC 34.9 g/dL (31.0-37.0); MCV 90.3 fL (80.0-100.0); Mean Platelet Volume 7.6; Monocytes # (A) 0.7 k/uL (0-1.0); Monocytes % (A) 7 %; Neutrophils # (A) 7.5 k/uL (1.3-7.7); Neutrophils % (A) 70 %; Platelet Count 326 k/uL (150-450); RBC 4.94 m/uL (3.80-5.40); RDW 15.6 % (11.5-15.5); WBC 10.8 k/uL (3.8-10.6)
[2019-04-15 20:06] LABS: ALT 16 U/L (9-52); AST 26 U/L (14-36); African American GFR (CKD) >90 (>60 ml/min/1.73 sqM); Albumin 4.8 g/dL (3.5-5.0); Alkaline Phosphatase 84 U/L (38-126); Amylase 151 U/L (30-110); Anion Gap 13 mmol/L; Blood Urea Nitrogen 16 mg/dL (7-17); Carbon Dioxide 24 mmol/L (22-30); Chloride 99 mmol/L (98-107); Glucose 109 mg/dL (74-99); Potassium 3.7 mmol/L (3.5-5.1); Sodium 136 mmol/L (137-145); Total Bilirubin 1.1 mg/dL (0.2-1.3)
[2019-04-15 20:12] LABS: Appearance,Urine Cloudy (Clear); Bilirubin,Urine Negative (Negative); Blood,Urine Small (Negative); Color,Urine Yellow; Glucose,Urine (UA) Negative (Negative); Ketones,Urine 3+ (Negative); Leukocyte Esterase,Urine Negative (Negative); Mucus,Urine Many /hpf; Nitrite,Urine Negative (Negative); PH, Urine 7.5 (5.0-8.0); Protein,Urine 2+ (Negative); RBC,Urine 21 /hpf (0-5); Specific Gravity,Urine 1.024 (1.001-1.035)
--- NOTE | 2019-04-15 21:50 | CT ---
EXAMINATION TYPE: CT abdomen pelvis w con DATE OF EXAM: 04/15/2019 COMPARISON: 06/24/2018 HISTORY: abdominal pain, nausea, vomiting CT DLP: 559.2 mGycm Automated exposure control for dose reduction was used. TECHNIQUE: Helical acquisition of images was performed from the lung bases through the pelvis. CONTRAST: Performed without Oral Contrast and with IV Contrast, patient injected with 100 mL of Isovu e 300. FINDINGS: LUNG BASES: No significant abnormality is appreciated. LIVER/GB: No significant abnormality is appreciated. PANCREAS: No significant abnormality is seen. SPLEEN: No significant abnormality is seen. ADRENALS: No significant abnormality is seen. KIDNEYS: No significant abnormality is seen. FREE AIR: No free air is visualized. RETROPERITONEAL ADENOPATHY: None visualized REPRODUCTIVE ORGANS: No significant abnormality is seen URINARY BLADDER: No significant abnormality is seen. PELVIC ADENOPATHY: None visualized. OSSEOUS STRUCTURES: No significant abnormality is seen. BOWEL: No significant abnormality is seen. OTHER: No acute vascular findings. IMPRESSION: NO PROCESS; NO CT CORRELATE FOR THE PATIENT'S SYMPTOMS.
[2019-04-15] MEDS ORDERED: ONDANSETRON 4 MG ODT STARTER PACK 2 TAB BTL PO STA (22:44)
[2019-04-15] MEDS ORDERED: ONDANSETRON 4 MG/2 ML VIAL IVP STA (22:44)
[2019-04-15 22:56] VITALS: BP 179/102; PULSE 68; TEMP 98.5
== END 2019-04-15 23:02 | disposition home or self-care (01) ==
LOC: EC 17:25
DX: R10.9 Unspecified abdominal pain (principal); R11.2 Nausea with vomiting, unspecified; E86.0 Dehydration; J44.9 Chronic obstructive pulmonary disease, unspecified; F17.200 Nicotine dependence, unspecified, uncomplicated; Z79.51 Long term (current) use of inhaled steroids; Z88.6 Allergy status to analgesic agent; Z88.1 Allergy status to other antibiotic agents; Z88.8 Allergy status to other drugs, medicaments and biological substances; Z90.49 Acquired absence of other specified parts of digestive tract
CPT/HCPCS: 36415; 80053; 82150; 83605; 83690; 85025; 81001; 74177; 99284; 96374; 96375 ×3; 96361; J1200; J2765; J2405; J1885; S0119; Q9967

== ENCOUNTER 2019-06-14 00:06 | Emergency (ER) | payer OTHER ==
[2019-06-14] MEDS ORDERED: ONDANSETRON 4 MG/2 ML VIAL IVP STA (00:29)
[2019-06-14 00:57] LABS: Basophils # (A) 0.1 k/uL (0-0.2); Basophils % (A) 1 %; Eosinophils # (A) 0.1 k/uL (0-0.7); Eosinophils % (A) 1 %; Lymphocytes # (A) 2.4 k/uL (1.0-4.8); Lymphocytes % (A) 24 %; MCH 32.2 pg (25.0-35.0); MCHC 35.6 g/dL (31.0-37.0); MCV 90.4 fL (80.0-100.0); Mean Platelet Volume 5.8; Monocytes # (A) 0.7 k/uL (0-1.0); Monocytes % (A) 7 %; Neutrophils # (A) 6.8 k/uL (1.3-7.7); Neutrophils % (A) 66 %; Platelet Count 359 k/uL (150-450); RBC 4.98 m/uL (3.80-5.40); RDW 12.9 % (11.5-15.5); WBC 10.4 k/uL (3.8-10.6)
[2019-06-14 01:00] LABS: Appearance,Urine Cloudy (Clear); Bilirubin,Urine Negative (Negative); Blood,Urine Small (Negative); Color,Urine Yellow; Glucose,Urine (UA) Negative (Negative); Ketones,Urine 4+ (Negative); Leukocyte Esterase,Urine Large (Negative); Mucus,Urine Many /hpf; Nitrite,Urine Negative (Negative); Protein,Urine 1+ (Negative); RBC,Urine 4 /hpf (0-5); Specific Gravity,Urine 1.022 (1.001-1.035); Squamous Epithelial Cell,Urine 8 /hpf (0-4)
[2019-06-14 01:07] LABS: ALT 15 U/L (9-52); AST 21 U/L (14-36); African American GFR (CKD) >90 (>60 ml/min/1.73 sqM); Albumin 4.6 g/dL (3.5-5.0); Alkaline Phosphatase 77 U/L (38-126); Amylase 174 U/L (30-110); Anion Gap 10 mmol/L; Blood Urea Nitrogen 20 mg/dL (7-17); Calcium 10.1 mg/dL (8.4-10.2); Carbon Dioxide 26 mmol/L (22-30); Chloride 100 mmol/L (98-107); Glucose 107 mg/dL (74-99); Non-African American GFR(CKD) >90 (>60 ml/min/1.73 sqM); Potassium 3.6 mmol/L (3.5-5.1); Sodium 136 mmol/L (137-145)
[2019-06-14] MEDS ORDERED: SODIUM CHLORIDE 0.9% 1,000 ML IV ONE (01:14)
[2019-06-14] MEDS ORDERED: MORPHINE SULFATE 4 MG/ML SYRINGE IV STA (02:03)
[2019-06-14] MEDS ORDERED: PROMETHAZINE INJ 25 MG in SODIUM CHLORIDE 0.9% 50 ML IVPB STA (02:03)
[2019-06-14 02:33] VITALS: BP 149/83; PULSE 71; RESP 18; TEMP 98.4
--- NOTE | 2019-06-14 03:58 | ED ---
Abdominal Pain HPI - General Chief Complaint: Abdominal Pain Stated Complaint: Abd Pain, Nausea Time Seen by Provider: 06/14/19 00:21 Source: patient, family Mode of arrival: ambulatory Limitations: no limitations - History of Present Illness Complaint: abdominal pain Onset/Timin -: days(s) Location: LLQ Radiation: none Severity: moderate Quality: aching Consistency: constant Improves With: nothing Worsens With: nothing Associated Symptoms: nausea, vomiting - Related Data Home Medications Medication Instructions Recorded Confirmed ALPRAZolam [Xanax] 1 mg PO TID PRN 01/12/15 04/14/19 Albuterol Inhaler [Ventolin Hfa 1 - 2 puff INHALATION RT-Q6H PRN 01/12/15 04/14/19 Inhaler] Budesonide/Formoterol Fumarate 2 puff INHALATION RT-BID 01/12/15 04/14/19 [Symbicort 160-4.5 Mcg Inhaler] Previous Rx's Medication Instructions Recorded Ondansetron Odt [Zofran Odt] 4 mg PO Q8HR PRN #12 tab 12/06/18 Metoclopramide [Reglan] 10 mg PO TID PRN #15 tab 04/15/19 Ondansetron Odt [Zofran Odt] 4 mg PO Q8HR PRN #10 tab 04/15/19 Dicyclomine [Bentyl] 20 mg PO QID #15 tablet 06/14/19 Nitrofurantoin Monohyd/M-Cryst 100 mg PO Q12HR #6 cap 06/14/19 [Macrobid] Promethazine [Phenergan] 25 mg PO Q6HR PRN #12 tablet 06/14/19 Penicillin V Potassium [Pen Vee K] 500 mg PO QID 10 Days #40 tablet 06/20/19 Allergies Allergy/AdvReac Type Severity Reaction Status Date / Time clarithromycin [From Biaxin] Allergy Unknown Verified 06/20/19 13:10 doxycycline Allergy Rash/Hives Verified 06/20/19 13:10 aspirin AdvReac Nausea & Verified 06/20/19 13:10 Vomiting Review of Systems ROS Statement: Those systems with pertinent positive or pertinent negative responses have been documented in the HPI. ROS Other: All systems not noted in ROS Statement are negative. Constitutional: Denies: fever, chills Respiratory: Denies: cough, dyspnea Cardiovascular: Denies: chest pain, palpitations, edema Gastrointestinal: Reports: as per HPI, abdominal pain, nausea, vomiting. Denies: diarrhea, constipation, melena, hematochezia Genitourinary: Denies: dysuria, hematuria Musculoskeletal: Denies: back pain Skin: Denies: rash Neurological: Denies: headache, weakness Past Medical History Past Medical History: COPD, GERD/Reflux, Thyroid Disorder, Vascular Disorder Additional Past Medical History / Comment(s): PUD, DDD, chronic low back pain, cervical pain, bronchitis, hyperthyroidism. History of Any Multi-Drug Resistant Organisms: None Reported Past Surgical History: Cholecystectomy, Tubal Ligation Additional Past Surgical History / Comment(s): Laparoscopic cholecystectomy 1999, EGD 2012. Past Anesthesia/Blood Transfusion Reactions: No Reported Reaction Past Psychological History: No Psychological Hx Reported Smoking Status: Current every day smoker Past Alcohol Use History: Rare Past Drug Use History: Marijuana - Past Family History Mother Family Medical History: Coronary Artery Disease (CAD), Myocardial Infarction ([place]) Additional Family Medical History / Comment(s): Mother is 78yrs old. Father Family Medical History: GERD/Reflux Additional Family Medical History / Comment(s): Father is 78yrs old. Brother(s) Family Medical History: No Reported History Daughter(s) Family Medical History: No Reported History Son(s) Family Medical History: No Reported History General Exam Limitations: no limitations General appearance: alert, in no apparent distress Head exam: Present: atraumatic, normocephalic Eye exam: Present: normal appearance. Absent: scleral icterus, conjunctival injection ENT exam: Present: normal oropharynx Neck exam: Present: normal inspection Respiratory exam: Present: normal lung sounds bilaterally. Absent: respiratory distress, wheezes, rales, rhonchi, stridor Cardiovascular Exam: Present: regular rate, normal rhythm, normal heart sounds. Absent: systolic murmur, diastolic murmur, rubs, gallop GI/Abdominal exam: Present: soft. Absent: distended, tenderness, guarding, rebound, rigid, mass, pulsatile mass, hernia Extremities exam: Present: normal inspection, normal capillary refill. Absent: pedal edema, calf tenderness Back exam: Present: normal inspection. Absent: CVA tenderness (R), CVA tenderness (L) Neurological exam: Present: alert Skin exam: Present: warm, dry, intact, normal color. Absent: rash Course Vital Signs 06/14/19 06/14/19 00:12 02:33 Temperature 98.2 F 98.4 F Pulse Rate 76 71 Respiratory 20 18 Rate Blood Pressure 141/93 149/83 O2 Sat by Pulse 97 95 Oximetry Medical Decision Making - Medical Decision Making is 49-year-old woman presenting to be a evaluated for abdominal pain. Labs show mild elevation amylase and lipase. In addition there are few white cells in urine. The patient is feeling better here following fluids and medication. We discussed admission but patient feels well enough she would like to try going home. We discussed appropriate further care and follow-up, including basic diet and advancing as tolerated. We discussed return parameters. - Lab Data Result diagrams: 06/14/19 00:41 06/14/19 00:41 Lab Results 06/14/19 06/14/19 06/14/19 Range/Units 00:41 00:41 00:41 WBC 10.4 (3.8-10.6) k/uL RBC 4.98 (3.80-5.40) m/uL Hgb 16.0 (11.4-16.0) gm/dL Hct 45.0 (34.0-46.0) % MCV 90.4 (80.0-100.0) fL MCH 32.2 (25.0-35.0) pg MCHC 35.6 (31.0-37.0) g/dL RDW 12.9 (11.5-15.5) % Plt Count 359 (150-450) k/uL Neutrophils % 66 % Lymphocytes % 24 % Monocytes % 7 % Eosinophils % 1 % Basophils % 1 % Neutrophils # 6.8 (1.3-7.7) k/uL Lymphocytes # 2.4 (1.0-4.8) k/uL Monocytes # 0.7 (0-1.0) k/uL Eosinophils # 0.1 (0-0.7) k/uL Basophils # 0.1 (0-0.2) k/uL Sodium 136 L (137-145) mmol/L Potassium 3.6 (3.5-5.1) mmol/L Chloride 100 (98-107) mmol/L Carbon Dioxide 26 (22-30) mmol/L Anion Gap 10 mmol/L BUN 20 H (7-17) mg/dL Creatinine 0.75 (0.52-1.04) mg/dL Est GFR (CKD-EPI)AfAm >90 (>60 ml/min/1.73 sqM) Est GFR (CKD-EPI)NonAf >90 (>60 ml/min/1.73 sqM) Glucose 107 H (74-99) mg/dL Calcium 10.1 (8.4-10.2) mg/dL Total Bilirubin 1.0 (0.2-1.3) mg/dL AST 21 (14-36) U/L ALT 15 (9-52) U/L Alkaline Phosphatase 77 (38-126) U/L Total Protein 8.0 (6.3-8.2) g/dL Albumin 4.6 (3.5-5.0) g/dL Amylase 174 H (30-110) U/L Lipase 409 H (23-300) U/L Urine Color Yellow Urine Appearance Cloudy H (Clear) Urine pH 6.0 (5.0-8.0) Ur Specific [place] 1.022 (1.001-1.035) Urine Protein 1+ H (Negative) Urine Glucose (UA) Negative (Negative) Urine Ketones 4+ H (Negative) Urine Blood Small H (Negative) Urine Nitrite Negative (Negative) Urine Bilirubin Negative (Negative) Urine Urobilinogen 3.0 (<2.0) mg/dL Ur Leukocyte Esterase Large H (Negative) Urine RBC 4 (0-5) /hpf Urine WBC 12 H (0-5) /hpf Ur Squamous Epith Cells 8 H (0-4) /hpf Urine Mucus Many H (None) /hpf Disposition Clinical Impression: Abdominal pain, Pancreatitis, Urinary tract infection Disposition: HOME SELF-CARE Condition: Fair Instructions (If sedation given, give patient instructions): Pancreatitis (ED), Urinary Tract Infection in Women (ED), Abdominal Pain (ED) Prescriptions: Dicyclomine [Bentyl] 20 mg PO QID #15 tablet Nitrofurantoin Monohyd/M-Cryst [Macrobid] 100 mg PO Q12HR #6 cap Promethazine [Phenergan] 25 mg PO Q6HR PRN #12 tablet PRN Reason: Vomiting Is patient prescribed a controlled substance at d/c from ED?: No Referrals: None,Stated [Primary Care Provider] - 1-2 days
[2019-06-14] MEDS ORDERED: HYDROmorphone 0.5 MG/0.5 ML SYRINGE IVP STA (04:09)
== END 2019-06-14 06:00 | disposition home or self-care (01) ==
LOC: EC 00:06
DX: N39.0 Urinary tract infection, site not specified (principal); K85.90 Acute pancreatitis without necrosis or infection, unspecified; J44.9 Chronic obstructive pulmonary disease, unspecified; F17.200 Nicotine dependence, unspecified, uncomplicated; Z79.51 Long term (current) use of inhaled steroids; Z88.1 Allergy status to other antibiotic agents; Z88.6 Allergy status to analgesic agent; Z87.11 Personal history of peptic ulcer disease
CPT/HCPCS: 36415; 80053; 82150; 83690; 85025; 81001; 87086; 99284; 96365; 96375 ×3; 96361; J2270; J2550; J2405; J1170

== ENCOUNTER 2019-06-20 13:08 | Emergency (ER) | payer OTHER ==
[2019-06-20 13:12] VITALS: BP 159/102; PULSE 72; RESP 16; TEMP 98.1
[2019-06-20] MEDS ORDERED: KETOROLAC 60 MG/2 ML VIAL IM STA (13:35)
[2019-06-20] MEDS ORDERED: ACET/COD 300 MG/30 MG STARTER PACK 6 TAB BTL PO STA (13:36)
--- NOTE | 2019-06-20 13:36 | ED ---
ENT HPI - General Chief complaint: Dental/Oral Stated complaint: Dental infection Time Seen by Provider: 06/20/19 13:25 Source: patient Mode of arrival: ambulatory Limitations: no limitations - History of Present Illness Initial comments: Patient is a 49-year-old female presenting to emergency Department with complaints of right lower dental pain 2 days. Patient states she has multiple fractured teeth and has been having ongoing pain in her right lower jaw as well as her left upper jaw. Patient states she has not seen a dentist in years. Patient states she came in today because she started noticing swelling of her right lower jaw as well as an increase in pain. Patient denies fever, chills, nausea, vomiting. Patient has no other complaints at this time. Patient states she did try Motrin without relief of symptoms. Upon arrival to the ER, vital signs are stable, afebrile. - Related Data Home Medications Medication Instructions Recorded Confirmed ALPRAZolam [Xanax] 1 mg PO TID PRN 01/12/15 04/14/19 Albuterol Inhaler [Ventolin Hfa 1 - 2 puff INHALATION RT-Q6H PRN 01/12/15 04/14/19 Inhaler] Budesonide/Formoterol Fumarate 2 puff INHALATION RT-BID 01/12/15 04/14/19 [Symbicort 160-4.5 Mcg Inhaler] Previous Rx's Medication Instructions Recorded Ondansetron Odt [Zofran Odt] 4 mg PO Q8HR PRN #12 tab 12/06/18 Metoclopramide [Reglan] 10 mg PO TID PRN #15 tab 04/15/19 Ondansetron Odt [Zofran Odt] 4 mg PO Q8HR PRN #10 tab 04/15/19 Dicyclomine [Bentyl] 20 mg PO QID #15 tablet 06/14/19 Nitrofurantoin Monohyd/M-Cryst 100 mg PO Q12HR #6 cap 06/14/19 [Macrobid] Promethazine [Phenergan] 25 mg PO Q6HR PRN #12 tablet 06/14/19 Penicillin V Potassium [Pen Vee K] 500 mg PO QID 10 Days #40 tablet 06/20/19 Allergies Allergy/AdvReac Type Severity Reaction Status Date / Time clarithromycin [From Biaxin] Allergy Unknown Verified 06/20/19 13:10 doxycycline Allergy Rash/Hives Verified 06/20/19 13:10 aspirin AdvReac Nausea & Verified 06/20/19 13:10 Vomiting Review of Systems ROS Statement: Those systems with pertinent positive or pertinent negative responses have been documented in the HPI. ROS Other: All systems not noted in ROS Statement are negative. Past Medical History Past Medical History: COPD, GERD/Reflux, Thyroid Disorder, Vascular Disorder Additional Past Medical History / Comment(s): PUD, DDD, chronic low back pain, cervical pain, bronchitis, hyperthyroidism. History of Any Multi-Drug Resistant Organisms: None Reported Past Surgical History: Cholecystectomy, Tubal Ligation Additional Past Surgical History / Comment(s): Laparoscopic cholecystectomy 1999, EGD 2012. Past Anesthesia/Blood Transfusion Reactions: No Reported Reaction Past Psychological History: No Psychological Hx Reported Smoking Status: Current every day smoker Past Alcohol Use History: Rare Past Drug Use History: Marijuana - Past Family History Mother Family Medical History: Coronary Artery Disease (CAD), Myocardial Infarction ([place]) Additional Family Medical History / Comment(s): Mother is 78yrs old. Father Family Medical History: GERD/Reflux Additional Family Medical History / Comment(s): Father is 78yrs old. Brother(s) Family Medical History: No Reported History Daughter(s) Family Medical History: No Reported History Son(s) Family Medical History: No Reported History General Exam - General Exam Comments Initial Comments: GENERAL: Well-appearing, well-nourished and in no acute distress. HEAD: Atraumatic, normocephalic. EYES: Pupils equal round and reactive to light, extraocular movements intact, sclera anicteric, conjunctiva are normal. ENT: TMs normal, nares patent, oropharynx clear without exudates. Moist mucous membranes. Patient has multiple fractured teeth as well as dental caries. Patient does have erythema around the right lower gumline as well as pain with palpation of the right lower teeth. There is no obvious abscess seen. NECK: Normal range of motion, supple without lymphadenopathy or JVD. LUNGS: Breath sounds clear to auscultation bilaterally and equal. No wheezes rales or rhonchi. HEART: Regular rate and rhythm without murmurs, rubs or gallops. EXTREMITIES: Normal range of motion, no pitting or edema. No clubbing or cyanosis. NEUROLOGICAL: Normal speech, normal gait. PSYCH: Normal mood, normal affect. SKIN: Warm, Dry, normal turgor, no rashes or lesions noted. Limitations: no limitations Course Vital Signs 06/20/19 13:08 Temperature 98.1 F Pulse Rate 72 Respiratory 16 Rate Blood Pressure 159/102 O2 Sat by Pulse 100 Oximetry Medical Decision Making - Medical Decision Making Patient is a 49-year-old female presenting with pain and swelling of the right lower jaw. Patient has a right lower dental abscess. Patient has many dental cavities as well as fractured teeth. Patient was given Toradol for pain relief and will be started on penicillin VK. Patient is urged to follow up with her dentist BERNADINE. Patient is in agreement with this plan of care. Return parameters were discussed with the patient she verbalized understanding. Case discussed with Dr. Davila. Disposition Clinical Impression: Dental abscess Disposition: HOME SELF-CARE Condition: Stable Instructions (If sedation given, give patient instructions): Dental Abscess (ED) Additional Instructions: Please return to the Emergency Department if symptoms worsen or any other concerns. Take antibiotic as prescribed. Continue with anti-inflammatories for pain and swelling relief. Follow-up with dentist BERNADINE. Prescriptions: Penicillin V Potassium [Pen Vee K] 500 mg PO QID 10 Days #40 tablet Is patient prescribed a controlled substance at d/c from ED?: No Referrals: None,Stated [Primary Care Provider] - 1-2 days
== END 2019-06-20 13:49 | disposition home or self-care (01) ==
LOC: EC 13:08
DX: K04.7 Periapical abscess without sinus (principal); K02.9 Dental caries, unspecified; S02.5XXA Fracture of tooth (traumatic), initial encounter for closed fracture; J44.9 Chronic obstructive pulmonary disease, unspecified; F17.200 Nicotine dependence, unspecified, uncomplicated; Z79.899 Other long term (current) drug therapy; Z79.51 Long term (current) use of inhaled steroids; Z88.1 Allergy status to other antibiotic agents; Z88.6 Allergy status to analgesic agent; X58.XXXA Exposure to other specified factors, initial encounter
CPT/HCPCS: 96372; 99282

== ENCOUNTER 2019-07-17 21:19 | Emergency (ER) | payer OTHER ==
[2019-07-17] MEDS ORDERED: IPRATROPIUM-ALBUTEROL 3 ML NEB INHALATION STA (21:41)
[2019-07-17] MEDS ORDERED: SODIUM CHLORIDE 0.9% 1,000 ML IV STA (21:41)
--- NOTE | 2019-07-17 21:52 | ED ---
URI HPI - General Chief Complaint: Upper Respiratory Infection Stated Complaint: Cough, shoulder pain Time Seen by Provider: 07/17/19 21:40 Source: patient, RN notes reviewed, old records reviewed Mode of arrival: ambulatory - History of Present Illness Initial Comments: This is a 49-year-old female DF for evaluation of increased cough and congestion chills. Unsure if she is having fevers with chest pain with cough especially right side of chest. No trauma. Again maybe fevers but increased cough and congestion with shortness of breath. Patient is a smoker who continues to smoke with history of COPD and asthma. No recent travel history no known sick contacts no prior hospitalizations for breathing issues for the last year. Patient is complaining of shortness of breath now with increasing cough she was debrided to his at home with no significant improvement MD Complaint: fever, cough -: days(s) Severity: moderate Severity scale (1-10): 5 Consistency: constant Improves With: nothing Worsens With: activity Context: sick contacts Associated Symptoms: fever, myalgias, cough, shortness of breath Treatments Prior to Arrival: none - Related Data Home Medications Medication Instructions Recorded Confirmed ALPRAZolam [Xanax] 1 mg PO TID PRN 01/12/15 04/14/19 Albuterol Inhaler [Ventolin Hfa 1 - 2 puff INHALATION RT-Q6H PRN 01/12/15 04/14/19 Inhaler] Budesonide/Formoterol Fumarate 2 puff INHALATION RT-BID 01/12/15 04/14/19 [Symbicort 160-4.5 Mcg Inhaler] Previous Rx's Medication Instructions Recorded Ondansetron Odt [Zofran Odt] 4 mg PO Q8HR PRN #12 tab 12/06/18 Metoclopramide [Reglan] 10 mg PO TID PRN #15 tab 04/15/19 Ondansetron Odt [Zofran Odt] 4 mg PO Q8HR PRN #10 tab 04/15/19 Dicyclomine [Bentyl] 20 mg PO QID #15 tablet 06/14/19 Nitrofurantoin Monohyd/M-Cryst 100 mg PO Q12HR #6 cap 06/14/19 [Macrobid] Promethazine [Phenergan] 25 mg PO Q6HR PRN #12 tablet 06/14/19 Penicillin V Potassium [Pen Vee K] 500 mg PO QID 10 Days #40 tablet 06/20/19 Albuterol Sulfate [Proair Hfa] 1 - 2 puff INHALATION Q4H PRN #1 07/17/19 inhaler predniSONE 50 mg PO DAILY #5 tab 07/17/19 Allergies Allergy/AdvReac Type Severity Reaction Status Date / Time clarithromycin [From Biaxin] Allergy Unknown Verified 07/17/19 21:34 doxycycline Allergy Rash/Hives Verified 07/17/19 21:34 aspirin AdvReac Nausea & Verified 07/17/19 21:34 Vomiting Review of Systems ROS Statement: Those systems with pertinent positive or pertinent negative responses have been documented in the HPI. ROS Other: All systems not noted in ROS Statement are negative. Past Medical History Past Medical History: COPD, GERD/Reflux, Thyroid Disorder, Vascular Disorder Additional Past Medical History / Comment(s): PUD, DDD, chronic low back pain, cervical pain, bronchitis, hyperthyroidism, left knee pain, History of Any Multi-Drug Resistant Organisms: None Reported Past Surgical History: Cholecystectomy, Tubal Ligation Additional Past Surgical History / Comment(s): Laparoscopic cholecystectomy 1999, EGD 2012. Past Anesthesia/Blood Transfusion Reactions: No Reported Reaction Past Psychological History: No Psychological Hx Reported Smoking Status: Current every day smoker Past Alcohol Use History: None Reported, Rare Past Drug Use History: Marijuana - Past Family History Mother Family Medical History: Coronary Artery Disease (CAD), Myocardial Infarction ([place]) Additional Family Medical History / Comment(s): Mother is 78yrs old. Father Family Medical History: GERD/Reflux Additional Family Medical History / Comment(s): Father is 78yrs old. Brother(s) Family Medical History: No Reported History Daughter(s) Family Medical History: No Reported History Son(s) Family Medical History: No Reported History General Exam General appearance: alert, in no apparent distress, anxious Head exam: Present: atraumatic, normocephalic, normal inspection Eye exam: Present: normal appearance, PERRL, EOMI. Absent: scleral icterus, conjunctival injection, periorbital swelling ENT exam: Present: normal exam, mucous membranes moist Neck exam: Present: normal inspection. Absent: tenderness, meningismus, lymphadenopathy Respiratory exam: Present: wheezes, chest wall tenderness, decreased breath sounds, prolonged expiratory. Absent: rales, rhonchi, stridor Cardiovascular Exam: Present: normal rhythm, tachycardia, normal heart sounds. Absent: systolic murmur, diastolic murmur, rubs, gallop, clicks GI/Abdominal exam: Present: soft, normal bowel sounds. Absent: distended, tenderness, guarding, rebound, rigid Extremities exam: Present: normal inspection, full ROM, normal capillary refill. Absent: tenderness, pedal edema, joint swelling, calf tenderness Back exam: Present: normal inspection Neurological exam: Present: alert, oriented X3, CN II-XII intact Psychiatric exam: Present: normal affect, normal mood Skin exam: Present: warm, dry, intact, normal color. Absent: rash Course Vital Signs 07/17/19 07/17/19 07/17/19 21:30 21:56 22:43 Temperature 99.6 F Pulse Rate 110 H 117 H Respiratory 17 22 18 Rate Blood Pressure 107/71 O2 Sat by Pulse 91 L Oximetry 07/17/19 22:59 Temperature Pulse Rate 110 H Respiratory 18 Rate Blood Pressure O2 Sat by Pulse Oximetry - Reevaluation(s) Reevaluation #1: 07/17/19 23:36 Patient's medical record is reviewed he Reevaluation #2: 07/17/19 23:36 Patient feels significantly improved here in the emergency room Medical Decision Making - Medical Decision Making 49 female DF increased cough and congestion she has asthma was a smoker not on home O2. Patient will be discharged home for acute bronchitis and COPD exacerbation. - Lab Data Result diagrams: 07/17/19 22:00 07/17/19 22:00 Lab Results 07/17/19 07/17/19 07/17/19 Range/Units 22:00 22:00 22:00 WBC 12.4 H (3.8-10.6) k/uL RBC 4.68 (3.80-5.40) m/uL Hgb 14.5 (11.4-16.0) gm/dL Hct 43.5 (34.0-46.0) % MCV 93.0 (80.0-100.0) fL MCH 31.0 (25.0-35.0) pg MCHC 33.3 (31.0-37.0) g/dL RDW 12.7 (11.5-15.5) % Plt Count 312 (150-450) k/uL Neutrophils % 77 % Lymphocytes % 12 % Monocytes % 6 % Eosinophils % 2 % Basophils % 2 % Neutrophils # 9.5 H (1.3-7.7) k/uL Lymphocytes # 1.5 (1.0-4.8) k/uL Monocytes # 0.8 (0-1.0) k/uL Eosinophils # 0.2 (0-0.7) k/uL Basophils # 0.3 H (0-0.2) k/uL PT 10.5 (9.0-12.0) sec INR 1.0 (<1.2) APTT 25.2 (22.0-30.0) sec Sodium 138 (137-145) mmol/L Potassium 4.0 (3.5-5.1) mmol/L Chloride 105 (98-107) mmol/L Carbon Dioxide 22 (22-30) mmol/L Anion Gap 11 mmol/L BUN 12 (7-17) mg/dL Creatinine 0.60 (0.52-1.04) mg/dL Est GFR (CKD-EPI)AfAm >90 (>60 ml/min/1.73 sqM) Est GFR (CKD-EPI)NonAf >90 (>60 ml/min/1.73 sqM) Glucose 96 (74-99) mg/dL Calcium 9.6 (8.4-10.2) mg/dL Magnesium 1.7 (1.6-2.3) mg/dL Total Bilirubin 1.2 (0.2-1.3) mg/dL AST 22 (14-36) U/L ALT 9 (4-34) U/L Alkaline Phosphatase 86 (38-126) U/L Creatine Kinase 49 (30-135) U/L Troponin I (0.000-0.034) ng/mL Total Protein 7.6 (6.3-8.2) g/dL Albumin 4.5 (3.5-5.0) g/dL 07/17/19 Range/Units 22:00 WBC (3.8-10.6) k/uL RBC (3.80-5.40) m/uL Hgb (11.4-16.0) gm/dL Hct (34.0-46.0) % MCV (80.0-100.0) fL MCH (25.0-35.0) pg MCHC (31.0-37.0) g/dL RDW (11.5-15.5) % Plt Count (150-450) k/uL Neutrophils % % Lymphocytes % % Monocytes % % Eosinophils % % Basophils % % Neutrophils # (1.3-7.7) k/uL Lymphocytes # (1.0-4.8) k/uL Monocytes # (0-1.0) k/uL Eosinophils # (0-0.7) k/uL Basophils # (0-0.2) k/uL PT (9.0-12.0) sec INR (<1.2) APTT (22.0-30.0) sec Sodium (137-145) mmol/L Potassium (3.5-5.1) mmol/L Chloride (98-107) mmol/L Carbon Dioxide (22-30) mmol/L Anion Gap mmol/L BUN (7-17) mg/dL Creatinine (0.52-1.04) mg/dL Est GFR (CKD-EPI)AfAm (>60 ml/min/1.73 sqM) Est GFR (CKD-EPI)NonAf (>60 ml/min/1.73 sqM) Glucose (74-99) mg/dL Calcium (8.4-10.2) mg/dL Magnesium (1.6-2.3) mg/dL Total Bilirubin (0.2-1.3) mg/dL AST (14-36) U/L ALT (4-34) U/L Alkaline Phosphatase (38-126) U/L Creatine Kinase (30-135) U/L Troponin I <0.012 (0.000-0.034) ng/mL Total Protein (6.3-8.2) g/dL Albumin (3.5-5.0) g/dL - EKG Data -: EKG Interpreted by Me (EKG shows sinus arrhythmia 39, by mouth 26, glucose 78, QTC 450) - Radiology Data Radiology results: report reviewed (Chest x-rays negative for acute disease), image reviewed Disposition Clinical Impression: COPD (chronic obstructive pulmonary disease), Asthmatic bronchitis Disposition: HOME SELF-CARE Condition: Good Instructions (If sedation given, give patient instructions): COPD (Chronic Obstructive Pulmonary Disease) (ED) Prescriptions: predniSONE 50 mg PO DAILY #5 tab Albuterol Sulfate [Proair Hfa] 1 - 2 puff INHALATION Q4H PRN #1 inhaler PRN Reason: Shortness Of Breath Is patient prescribed a controlled substance at d/c from ED?: No Referrals: None,Stated [Primary Care Provider] - 1-2 days
[2019-07-17 22:07] LABS: Basophils # (A) 0.3 k/uL (0-0.2); Basophils % (A) 2 %; Eosinophils # (A) 0.2 k/uL (0-0.7); Eosinophils % (A) 2 %; HCT 43.5 % (34.0-46.0); HGB 14.5 gm/dL (11.4-16.0); Lymphocytes # (A) 1.5 k/uL (1.0-4.8); Lymphocytes % (A) 12 %; MCHC 33.3 g/dL (31.0-37.0); Monocytes # (A) 0.8 k/uL (0-1.0); Monocytes % (A) 6 %; Neutrophils # (A) 9.5 k/uL (1.3-7.7); Neutrophils % (A) 77 %; Platelet Count 312 k/uL (150-450); RBC 4.68 m/uL (3.80-5.40); RDW 12.7 % (11.5-15.5); WBC 12.4 k/uL (3.8-10.6)
[2019-07-17 22:16] LABS: Prothrombin Time 10.5 sec (9.0-12.0)
[2019-07-17 22:17] LABS: Partial Thromboplastin Time 25.2 sec (22.0-30.0)
--- NOTE | 2019-07-17 22:20 | XR ---
EXAMINATION TYPE: XR chest 2V DATE OF EXAM: 07/17/2019 COMPARISON: 06/24/2018 HISTORY: Nausea. Chest pain TECHNIQUE: 2 views FINDINGS: Heart is normal. Lungs are clear of consolidation. There is no pleural effusion. There are no hilar masses. There are bilateral nipple shadows. IMPRESSION: No active cardiopulmonary disease. No change.
[2019-07-17 22:21] LABS: ALT 9 U/L (4-34); AST 22 U/L (14-36); African American GFR (CKD) >90 (>60 ml/min/1.73 sqM); Albumin 4.5 g/dL (3.5-5.0); Alkaline Phosphatase 86 U/L (38-126); Anion Gap 11 mmol/L; Blood Urea Nitrogen 12 mg/dL (7-17); Calcium 9.6 mg/dL (8.4-10.2); Carbon Dioxide 22 mmol/L (22-30); Chloride 105 mmol/L (98-107); Creatine Kinase 49 U/L (30-135); Glucose 96 mg/dL (74-99); Magnesium 1.7 mg/dL (1.6-2.3); Non-African American GFR(CKD) >90 (>60 ml/min/1.73 sqM); Sodium 138 mmol/L (137-145); Total Bilirubin 1.2 mg/dL (0.2-1.3); Total Protein 7.6 g/dL (6.3-8.2)
[2019-07-17 22:45] VITALS: RESP 18
[2019-07-17] MEDS ORDERED: KETOROLAC 30 MG/ML 1 ML VIAL IVP STA (23:33)
[2019-07-17] MEDS ORDERED: DEXAMETHASONE SOD PHOSPHATE 10 MG/ML 1 ML VIAL IV STA (23:34)
[2019-07-17 23:55] VITALS: BP 124/66; PULSE 92; TEMP 99.8
== END 2019-07-18 00:11 | disposition home or self-care (01) ==
LOC: EC 21:19
DX: J44.9 Chronic obstructive pulmonary disease, unspecified (principal); F17.200 Nicotine dependence, unspecified, uncomplicated; Z79.51 Long term (current) use of inhaled steroids; Z88.1 Allergy status to other antibiotic agents; Z88.6 Allergy status to analgesic agent
CPT/HCPCS: 36415; 94640; 93005; 83880; 80053; 82550; 83735; 84484; 85025; 85610; 85730; 71046; 99284; 96374; 96375; 96361 ×2; J1100; J1885

== ENCOUNTER 2022-01-07 14:52 | Emergency (ER) | payer OTHER ==
[2022-01-07 15:48] VITALS: BP 137/83; PULSE 85; RESP 16; TEMP 98.1
[2022-01-07] MEDS ORDERED: ACYCLOVIR 800 MG TAB PO STA (20:42)
--- NOTE | 2022-01-07 20:51 | ED ---
Skin/Abscess/FB HPI - General Chief complaint: Skin/Abscess/Foreign Body Stated complaint: Rash R side Source: patient Mode of arrival: ambulatory Limitations: no limitations - History of Present Illness Initial comments: She is a 51-year-old year-old female who presents for evaluation of rash. Patient states she had pain in the back of her shoulder on 01/02/22 where she was evaluated at [facility]. Patient states she was diagnosed with a shoulder sprain however she did not injure her shoulder. Patient states that on 01/04 she noticed a rash on the left side of her body over the back of her shoulder, left arm, and chest. Patient states the rash is painful and itchy. Patient does have history of chickenpox. Denies fever, chills, eye pain, ear pain and facial pain. - Related Data Home Medications Medication Instructions Recorded Confirmed ALPRAZolam [Xanax] 1 mg PO TID PRN 01/12/15 04/14/19 Albuterol Inhaler [Ventolin Hfa 1 - 2 puff INHALATION RT-Q6H PRN 01/12/15 04/14/19 Inhaler] Budesonide/Formoterol Fumarate 2 puff INHALATION RT-BID 01/12/15 04/14/19 [Symbicort 160-4.5 Mcg Inhaler] Previous Rx's Medication Instructions Recorded Ondansetron Odt [Zofran Odt] 4 mg PO Q8HR PRN #12 tab 12/06/18 Metoclopramide [Reglan] 10 mg PO TID PRN #15 tab 04/15/19 Ondansetron Odt [Zofran Odt] 4 mg PO Q8HR PRN #10 tab 04/15/19 Dicyclomine [Bentyl] 20 mg PO QID #15 tablet 06/14/19 Nitrofurantoin Monohyd/M-Cryst 100 mg PO Q12HR #6 cap 06/14/19 [Macrobid] Promethazine [Phenergan] 25 mg PO Q6HR PRN #12 tablet 06/14/19 Penicillin V Potassium [Pen Vee K] 500 mg PO QID 10 Days #40 tablet 06/20/19 Albuterol Sulfate [Proair Hfa] 1 - 2 puff INHALATION Q4H PRN #1 07/17/19 inhaler predniSONE 50 mg PO DAILY #5 tab 12/26/19 Acyclovir [Zovirax] 800 mg PO Q4H #35 tab 01/07/22 Ibuprofen [Motrin] 800 mg PO Q6HR #28 tab 01/07/22 Lidocaine 5% Patch [Lidoderm] 1 patch TOPICAL DAILY PRN #10 patch 01/07/22 Allergies Allergy/AdvReac Type Severity Reaction Status Date / Time clarithromycin [From Biaxin] Allergy Unknown Verified 01/07/22 15:48 doxycycline Allergy Rash/Hives Verified 01/07/22 15:48 aspirin AdvReac Nausea & Verified 01/07/22 15:48 Vomiting Review of Systems ROS Statement: Those systems with pertinent positive or pertinent negative responses have been documented in the HPI. ROS Other: All systems not noted in ROS Statement are negative. Past Medical History Past Medical History: COPD, GERD/Reflux, Thyroid Disorder, Vascular Disorder Additional Past Medical History / Comment(s): PUD, DDD, chronic low back pain, cervical pain, bronchitis, hyperthyroidism, left knee pain, History of Any Multi-Drug Resistant Organisms: None Reported Past Surgical History: Cholecystectomy, Tubal Ligation Additional Past Surgical History / Comment(s): Laparoscopic cholecystectomy 1999, EGD 2012. Past Anesthesia/Blood Transfusion Reactions: No Reported Reaction Past Psychological History: No Psychological Hx Reported Smoking Status: Current every day smoker Past Alcohol Use History: None Reported, Rare Past Drug Use History: Marijuana - Past Family History Mother Family Medical History: Coronary Artery Disease (CAD), Myocardial Infarction ([place]) Additional Family Medical History / Comment(s): Mother is 78yrs old. Father Family Medical History: GERD/Reflux Additional Family Medical History / Comment(s): Father is 78yrs old. Brother(s) Family Medical History: No Reported History Daughter(s) Family Medical History: No Reported History Son(s) Family Medical History: No Reported History General Exam Limitations: no limitations Head exam: Present: atraumatic, normocephalic, normal inspection Eye exam: Present: normal appearance, PERRL, EOMI. Absent: scleral icterus, conjunctival injection, periorbital swelling ENT exam: Present: normal external ear exam Neck exam: Present: normal inspection Respiratory exam: Present: normal lung sounds bilaterally. Absent: respiratory distress, wheezes, rales, rhonchi, stridor Cardiovascular Exam: Present: regular rate, normal rhythm, normal heart sounds. Absent: systolic murmur, diastolic murmur, rubs, gallop, clicks Neurological exam: Present: alert, oriented X3, CN II-XII intact Psychiatric exam: Present: normal affect, normal mood Skin exam: Present: warm, dry, intact, normal color, rash (clustered vesicles over in dermatomal pattern over left back, left arm, and left chest ) Course Vital Signs 01/07/22 15:46 Temperature 98.1 F Pulse Rate 85 Respiratory 16 Rate Blood Pressure 137/83 O2 Sat by Pulse 96 Oximetry Medical Decision Making - Medical Decision Making This is a 51-year-old female who presents to the emergency department for evaluation of rash. Thorough history and examination were performed. There are clustered vesicles over in dermatomal pattern over left back, left arm, and left chest. This resembles shingles. Patient has history of chickenpox. There is no facial, ear, or eye involvement. Shingles education discussed with patient detail. Patient will be sent home with acyclovir and pain management. Return parameters discussed. Patient does not have a primary care provider. We discussed the importance of finding one. Patient verbalizes understanding and is agreeable to this plan. Dr. Lieberman is my attending. Disposition Clinical Impression: Shingles Disposition: HOME SELF-CARE Condition: Good Instructions (If sedation given, give patient instructions): Shingles (ED) Additional Instructions: Take antiviral as directed. Take 1 dose every 4 hours up to 5 times a day for 7 days. This can best be achieved by starting at 7 AM, then 11 AM, the 3 PM, then 7 PM, then 11 PM. Apply lidocaine patch to most painful area. You will leave on for 12 hours and then leave off for 12 hours before placing on a new one. Take anti-inflammatories such as ibuprofen for pain. Take an antihistamine such as Claritin or Zyrtec for itching. It is important to find a primary care provider to follow-up with. Return to emergency department experience new, concerning, or worsening symptoms. Prescriptions: Lidocaine 5% Patch [Lidoderm] 1 patch TOPICAL DAILY PRN #10 patch PRN Reason: Pain Ibuprofen [Motrin] 800 mg PO Q6HR #28 tab Acyclovir [Zovirax] 800 mg PO Q4H #35 tab Is patient prescribed a controlled substance at d/c from ED?: No Referrals: None,Stated [Primary Care Provider] - 1-2 days
[2022-01-07] MEDS ORDERED: LIDOCAINE 5% PATCH TOPICAL SCH (21:00)
== END 2022-01-07 21:04 | disposition home or self-care (01) ==
LOC: EC 14:52
DX: B02.9 Zoster without complications (principal); J44.9 Chronic obstructive pulmonary disease, unspecified; K21.9 Gastro-esophageal reflux disease without esophagitis; E07.9 Disorder of thyroid, unspecified; Z79.83 Long term (current) use of bisphosphonates; Z79.899 Other long term (current) drug therapy; F17.200 Nicotine dependence, unspecified, uncomplicated; Z82.49 Family history of ischemic heart disease and other diseases of the circulatory system; Z88.1 Allergy status to other antibiotic agents; Z88.8 Allergy status to other drugs, medicaments and biological substances

== ENCOUNTER 2023-03-07 19:12 | Emergency (ER) | payer OTHER ==
--- NOTE | 2023-03-07 19:56 | ED ---
Back Pain HPI - General Chief Complaint: Back Pain/Injury Stated Complaint: Back pain Time Seen by Provider: 03/07/23 19:44 Source: patient, RN notes reviewed, old records reviewed Limitations: no limitations - History of Present Illness Initial Comments: 52-year-old female alert and oriented x4 presents with family complaining of low back pain that started 2 days ago. Patient states that she was just sitting on the couch when the pain came on. Describes it as sharp. Denies any injury. Denies any fevers. No nausea vomiting or diarrhea. No bowel or bladder incontinence. States that she was partying with some friends on Sunday night late does not recall having any injury. Does have a history of degenerative disc disease, chronic back pain COPD, GERD and vascular disease. MD Complaint: back pain -: days(s) (3) Similar Symptoms Previously: Yes Place: home Radiation: none Severity scale (1-10): 8 Quality: sharp Consistency: constant Worsens With: movement Context: unknown Associated Symptoms: denies other symptoms - Related Data Home Medications Medication Instructions Recorded Confirmed ALPRAZolam [Xanax] 1 mg PO TID PRN 01/12/15 04/14/19 Albuterol Inhaler [Ventolin Hfa 1 - 2 puff INHALATION RT-Q6H PRN 01/12/15 04/14/19 Inhaler] Budesonide/Formoterol Fumarate 2 puff INHALATION RT-BID 01/12/15 04/14/19 [Symbicort 160-4.5 Mcg Inhaler] Previous Rx's Medication Instructions Recorded Ondansetron Odt [Zofran Odt] 4 mg PO Q8HR PRN #12 tab 12/06/18 Metoclopramide [Reglan] 10 mg PO TID PRN #15 tab 04/15/19 Ondansetron Odt [Zofran Odt] 4 mg PO Q8HR PRN #10 tab 04/15/19 Dicyclomine [Bentyl] 20 mg PO QID #15 tablet 06/14/19 Nitrofurantoin Monohyd/M-Cryst 100 mg PO Q12HR #6 cap 06/14/19 [Macrobid] Promethazine [Phenergan] 25 mg PO Q6HR PRN #12 tablet 06/14/19 Penicillin V Potassium [Pen Vee K] 500 mg PO QID 10 Days #40 tablet 06/20/19 Albuterol Sulfate [Proair Hfa] 1 - 2 puff INHALATION Q4H PRN #1 07/17/19 inhaler predniSONE 50 mg PO DAILY #5 tab 07/17/19 Acyclovir [Zovirax] 800 mg PO Q4H #35 tab 01/07/22 Ibuprofen [Motrin] 800 mg PO Q6HR #28 tab 01/07/22 Lidocaine 5% Patch [Lidoderm] 1 patch TOPICAL DAILY PRN #10 patch 01/07/22 Cyclobenzaprine [Flexeril] 10 mg PO TID PRN #15 tab 03/07/23 Ibuprofen 400 mg PO Q8HR #30 tablet 03/07/23 Lidocaine 5% Patch [Lidoderm] 1 patch TOPICAL DAILY #10 patch 03/07/23 Allergies Allergy/AdvReac Type Severity Reaction Status Date / Time clarithromycin [From Biaxin] Allergy Unknown Verified 03/07/23 19:31 doxycycline Allergy Rash/Hives Verified 03/07/23 19:31 aspirin AdvReac Nausea & Verified 03/07/23 19:31 Vomiting Review of Systems ROS Statement: Those systems with pertinent positive or pertinent negative responses have been documented in the HPI. ROS Other: All systems not noted in ROS Statement are negative. Past Medical History Past Medical History: COPD, GERD/Reflux, Thyroid Disorder, Vascular Disorder Additional Past Medical History / Comment(s): PUD, DDD, chronic low back pain, cervical pain, bronchitis, hyperthyroidism, left knee pain, History of Any Multi-Drug Resistant Organisms: None Reported Past Surgical History: Cholecystectomy, Tubal Ligation Additional Past Surgical History / Comment(s): Laparoscopic cholecystectomy 1999, EGD 2012. Past Anesthesia/Blood Transfusion Reactions: No Reported Reaction Past Psychological History: No Psychological Hx Reported Smoking Status: Current every day smoker Past Alcohol Use History: None Reported, Rare Past Drug Use History: Marijuana - Past Family History Mother Family Medical History: Coronary Artery Disease (CAD), Myocardial Infarction ([place]) Additional Family Medical History / Comment(s): Mother is 78yrs old. Father Family Medical History: GERD/Reflux Additional Family Medical History / Comment(s): Father is 78yrs old. Brother(s) Family Medical History: No Reported History Daughter(s) Family Medical History: No Reported History Son(s) Family Medical History: No Reported History General Exam Limitations: no limitations General appearance: alert, in no apparent distress Head exam: Present: atraumatic, normocephalic Eye exam: Present: normal appearance. Absent: scleral icterus, conjunctival injection, periorbital swelling ENT exam: Present: mucous membranes moist Neck exam: Present: full ROM. Absent: tenderness, meningismus Respiratory exam: Present: normal lung sounds bilaterally. Absent: respiratory distress, accessory muscle use Cardiovascular Exam: Present: regular rate GI/Abdominal exam: Present: soft Extremities exam: Present: full ROM, normal capillary refill. Absent: tenderness, pedal edema Back exam: Present: full ROM, paraspinal tenderness (lumbar), vertebral tenderness (lumbar), other (2 linear bruises left lumbar paraspinal , one linear bruise right lumbar paraspinal). Absent: tenderness, CVA tenderness (R), CVA tenderness (L), rash noted Neurological exam: Present: alert, oriented X3 Psychiatric exam: Present: normal affect, normal mood Skin exam: Present: warm, dry, normal color. Absent: cyanosis, diaphoretic, petechiae, pallor Course Vital Signs 03/07/23 19:27 Temperature 98.3 F Pulse Rate 72 Respiratory 20 Rate Blood Pressure 119/69 O2 Sat by Pulse 98 Oximetry Medical Decision Making - Medical Decision Making Was pt. sent in by a medical professional or institution (PING Tamez, MANAGER SEMICONDUCTOR, urgent care, hospital, or prison...) When possible be specific @ -No Did you speak to anyone other than the patient for history (EMS, parent, family, police, friend...)? What history was obtained from this source @ -No Did you review nursing and triage notes (agree or disagree)? Why? @ -I reviewed and agree with nursing and triage notes Were old charts reviewed (outside hosp., previous admission, EMS record, old EKG, old radiological studies, urgent care reports/EKG's, prison records)? Report findings @ -CT abdomen pelvis dated March 2019 was reviewed showing no osseous abnormalities. Differential Diagnosis (chest pain, altered mental status, abdominal pain women, abdominal pain men, vaginal bleeding, weakness, fever, dyspnea, syncope, headache, dizziness, GI bleed, back pain, seizure, CVA, palpatations, mental health, musculoskeletal)? @ -Differential Back Pain: Strain, zoster, cauda equina syndrome, epidural abscess, vertebral osteomyelitis, discitis, fracture, subluxation, disc herniation, DJD, spinal stenosis, dissection, AAA, pancreatitis, peptic ulcer disease, pyelonephritis, kidney stone, this is not meant to be an all-inclusive list. EKG interpreted by me (3pts min.). @ -n/a X-rays interpreted by me (1pt min.). @ -None done CT interpreted by me (1pt min.). @ -None done U/S interpreted by me (1pt. min.). @ -None done What testing was considered but not performed or refused? (CT, X-rays, U/S, labs)? Why? @ -X-rays were considered however this is acute low back pain with no concerning red flags, no trauma What meds were considered but not given or refused? Why? @ -None Did you discuss the management of the patient with other professionals (professionals i.e. , PA, MANAGER SEMICONDUCTOR, lab, RT, psych nurse, social research assistant, jewel flat surfacer, teacher, court security officer, behavioral health case manager)? Give summary @ -No Was smoking cessation discussed for >3mins.? @ -yes Was critical care preformed (if so, how long)? @ -No Were there social determinants of health that impacted care today? How? (Homelessness, low income, unemployed, alcoholism, drug addiction, transportation, low edu. Level, literacy, decrease access to med. care, skilled nursing, rehab)? @ -No Was there de-escalation of care discussed even if they declined (Discuss DNR or withdrawal of care, Hospice)? DNR status @ -No What co-morbidities impacted this encounter? (DM, HTN, Smoking, COPD, CAD, Cancer, CVA, ARF, Chemo, Hep., AIDS, mental health diagnosis, sleep apnea, morbid obesity)? @ -History of degenerative disc disease, chronic back pain COPD, GERD and vascular disease. Was patient admitted / discharged? Hospital course, mention meds given and route, prescriptions, significant lab abnormalities, going to OR and other pertinent info. @ -Discharged 52-year-old female alert and oriented x4 presents with family complaining of low back pain that started 2 days ago. Patient states that she was just sitting on the couch when the pain came on. Describes it as sharp. Denies any injury. Denies any fevers. No nausea vomiting or diarrhea. No bowel or bladder incontinence. States that she was at a republican Sunday and does not recall much of the night. Pain developed on Sunday. Has been using heating pads and massage with minimal relief. Denies any fevers. No right flank symptoms. On physical exam patient does have two 3 cm linear bruises to the left flank, one linear bruise right flank. Does not know how she obtained these. She denies any dysuria. No trauma. Patient had a CT abdomen and pelvis performed on 04/15/2019 osseous structures without any abnormality at that time. She did get some relief with Lidoderm patch, Norflex and Toradol. She was given a prescription for Flexeril and Lidoderm patches, directed take Motrin as needed along with Tylenol. I did explain that low back pain may take several days to weeks to resolve. She was encouraged to obtain a primary care doctor on list that was provided. Strict return parameters were discussed for any increased pain and inability to ambulate or bowel or bladder incontinence. She is agreeable to this plan. Discharged home with family. Undiagnosed new problem with uncertain prognosis? @ -No Drug Therapy requiring intensive monitoring for toxicity (Heparin, Nitro, Insulin, Cardizem)? @ -No Were any procedures done? @ -No Diagnosis/symptom? @ -Acute low back pain Acute, or Chronic, or Acute on Chronic? @ -Acute Uncomplicated (without systemic symptoms) or Complicated (systemic symptoms)? @ -Uncomplicated Side effects of treatment? @ -No] Exacerbation, Progression, or Severe Exacerbation? @ -[No] Poses a threat to life or bodily function? How? (Chest pain, USA, [place], pneumonia, PE, COPD, DKA, ARF, appy, cholecystitis, CVA, Diverticulitis, Homicidal, Suicidal, threat to staff... and all critical care pts) @ -[No] Disposition Clinical Impression: Lumbar back pain Disposition: HOME SELF-CARE Condition: Good Instructions (If sedation given, give patient instructions): Acute Low Back Pain (ED), Lower Back Exercises (ED) Additional Instructions: Tylenol and or Motrin as needed for any pain or discomfort. Flexeril as a muscle relaxer, do not drink alcohol, drive or operate heavy machinery while taking this medication. Return to the emergency room with any new or concerning symptoms including fever, bowel or bladder incontinence or inability to ambulate. Follow-up with your primary care doctor next week for reevaluation. Prescriptions: Cyclobenzaprine [Flexeril] 10 mg PO TID PRN #15 tab PRN Reason: Muscle Spasm Ibuprofen 400 mg PO Q8HR #30 tablet Lidocaine 5% Patch [Lidoderm] 1 patch TOPICAL DAILY #10 patch Is patient prescribed a controlled substance at d/c from ED?: No Referrals: None,Stated [Primary Care Provider] - 1-2 days Forms: Area PCPs Time of Disposition: 20:58
[2023-03-07] MEDS ORDERED: KETOROLAC 15 MG/ML 1 ML VIAL IM STA (20:05)
[2023-03-07] MEDS ORDERED: ORPHENADRINE 30 MG/ML 2 ML VIAL IM STA (20:05)
[2023-03-07] MEDS ORDERED: LIDOCAINE 5% PATCH TOPICAL SCH (20:15)
[2023-03-07 21:20] VITALS: BP 137/67; PULSE 57; RESP 16; TEMP 98.1
[2023-03-07] MEDS ORDERED: ACETAMINOPHEN TAB 500 MG TAB PO STA (21:21)
== END 2023-03-07 21:31 | disposition home or self-care (01) ==
LOC: EC 19:12
DX: M54.50 Low back pain, unspecified (principal); J44.9 Chronic obstructive pulmonary disease, unspecified; F17.200 Nicotine dependence, unspecified, uncomplicated; F12.90 Cannabis use, unspecified, uncomplicated; Z88.6 Allergy status to analgesic agent; Z88.1 Allergy status to other antibiotic agents; Z88.8 Allergy status to other drugs, medicaments and biological substances; Z79.51 Long term (current) use of inhaled steroids; Z79.899 Other long term (current) drug therapy
CPT/HCPCS: 99284; 96372 ×2; J2360; J1885

== ENCOUNTER 2025-01-11 18:32 | Emergency (ER) | payer OTHER ==
--- NOTE | 2025-01-11 18:58 | ED ---
SOB HPI - General Chief Complaint: Shortness of Breath Stated Complaint: SOB Time Seen by Provider: 01/11/25 18:56 Source: patient, RN notes reviewed Mode of arrival: ambulatory - History of Present Illness Initial Comments: 54-year-old female with history of COPD presenting for shortness of breath x 1 week that is progressively worsening. Also admits to sinus and chest congest ion. States she has been using her inhaler at home with little relief. Denies cough, nasal congestion, fevers. Denies chest pain. States she feels as though the warm weather flared up her COPD. She is not on at home oxygen. She is an active tobacco smoker. - Related Data Home Medications Medication Instructions Recorded Confirmed ALPRAZolam [Xanax] 1 mg PO TID PRN 01/12/15 04/14/19 Albuterol Inhaler [Ventolin Hfa 1 - 2 puff INHALATION RT-Q6H PRN 01/12/15 04/14/19 Inhaler] Budesonide/Formoterol Fumarate 2 puff INHALATION RT-BID 01/12/15 04/14/19 [Symbicort 160-4.5 Mcg Inhaler] Previous Rx's Medication Instructions Recorded Ondansetron Odt [Zofran Odt] 4 mg PO Q8HR PRN #12 tab 12/06/18 Metoclopramide [Reglan] 10 mg PO TID PRN #15 tab 04/15/19 Ondansetron Odt [Zofran Odt] 4 mg PO Q8HR PRN #10 tab 04/15/19 Dicyclomine [Bentyl] 20 mg PO QID #15 tablet 06/14/19 Nitrofurantoin Monohyd/M-Cryst 100 mg PO Q12HR #6 cap 06/14/19 [Macrobid] Promethazine [Phenergan] 25 mg PO Q6HR PRN #12 tablet 06/14/19 Penicillin V Potassium [Pen Vee K] 500 mg PO QID 10 Days #40 tablet 06/20/19 Albuterol Sulfate [Proair Hfa] 1 - 2 puff INHALATION Q4H PRN #1 07/17/19 inhaler predniSONE 50 mg PO DAILY #5 tab 07/17/19 Acyclovir [Zovirax] 800 mg PO Q4H #35 tab 01/07/22 Ibuprofen [Motrin] 800 mg PO Q6HR #28 tab 01/07/22 Lidocaine 5% Patch [Lidoderm] 1 patch TOPICAL DAILY PRN #10 patch 01/07/22 Cyclobenzaprine [Flexeril] 10 mg PO TID PRN #15 tab 03/07/23 Ibuprofen 400 mg PO Q8HR #30 tablet 03/07/23 Lidocaine 5% Patch [Lidoderm] 1 patch TOPICAL DAILY #10 patch 03/07/23 predniSONE [Deltasone] 40 mg PO DAILY #10 tab 01/11/25 Allergies Allergy/AdvReac Type Severity Reaction Status Date / Time clarithromycin [From Biaxin] Allergy Unknown Verified 01/11/25 18:43 doxycycline Allergy Rash/Hives Verified 01/11/25 18:43 aspirin AdvReac Nausea & Verified 01/11/25 18:43 Vomiting Review of Systems ROS Statement: Those systems with pertinent positive or pertinent negative responses have been documented in the HPI. ROS Other: All systems not noted in ROS Statement are negative. Past Medical History Past Medical History: COPD, GERD/Reflux, Thyroid Disorder, Vascular Disorder Additional Past Medical History / Comment(s): PUD, DDD, chronic low back pain, cervical pain, bronchitis, hyperthyroidism, left knee pain, History of Any Multi-Drug Resistant Organisms: None Reported Past Surgical History: Cholecystectomy, Tubal Ligation Additional Past Surgical History / Comment(s): Laparoscopic cholecystectomy 1999, EGD 2012. Past Anesthesia/Blood Transfusion Reactions: No Reported Reaction Past Psychological History: No Psychological Hx Reported Smoking Status: Current some day smoker Past Alcohol Use History: None Reported, Rare Past Drug Use History: Marijuana - Past Family History Mother Family Medical History: Coronary Artery Disease (CAD), Myocardial Infarction ([place]) Additional Family Medical History / Comment(s): Mother is 78yrs old. Father Family Medical History: GERD/Reflux Additional Family Medical History / Comment(s): Father is 78yrs old. Brother(s) Family Medical History: No Reported History Daughter(s) Family Medical History: No Reported History Son(s) Family Medical History: No Reported History General Exam - General Exam Comments Initial Comments: Visual Physical Exam Vital signs reviewed General: Well-appearing, nontoxic, no acute distress. Head: Normocephalic, atraumatic Eyes: PERRLA, EOMI ENT: Airway patent Chest: Nonlabored breathing Skin: No visual rash, normal skin tone Neuro: Alert and oriented 3 Musculoskeletal: No gross abnormalities General appearance: alert, in no apparent distress Head exam: Present: atraumatic, normocephalic, normal inspection Eye exam: Present: normal appearance, PERRL, EOMI. Absent: scleral icterus, conjunctival injection, periorbital swelling ENT exam: Present: normal exam, mucous membranes moist Respiratory exam: Present: normal lung sounds bilaterally, wheezes (Expiratory wheezing in all lung fitzpatrick bilaterally). Absent: respiratory distress, rales, rhonchi, stridor, accessory muscle use Cardiovascular Exam: Present: regular rate, normal rhythm, normal heart sounds. Absent: systolic murmur, diastolic murmur, rubs, gallop, clicks Neurological exam: Present: alert, oriented X3 Psychiatric exam: Present: normal affect, normal mood Skin exam: Present: warm, dry, intact, normal color. Absent: rash Course Vital Signs 01/11/25 01/11/25 01/11/25 18:37 18:45 20:17 Temperature 98.1 F Pulse Rate 81 78 Respiratory 28 H 20 Rate Blood Pressure 162/94 189/100 O2 Sat by Pulse 89 L 93 L 92 L Oximetry 01/11/25 01/11/25 01/11/25 20:54 21:31 21:42 Temperature Pulse Rate 74 76 Respiratory 22 Rate Blood Pressure O2 Sat by Pulse Oximetry 01/11/25 22:18 Temperature 98.3 F Pulse Rate 79 Respiratory 21 Rate Blood Pressure 137/84 O2 Sat by Pulse 93 L Oximetry Medical Decision Making - Medical Decision Making I completed the quick note portion of this chart signed Regina Tomlin PA-C Was pt. sent in by a medical professional or institution (PING Tamez, QUALITY FACILITATOR, urgent care, hospital, or long term...) When possible be specific @ -No Did you speak to anyone other than the patient for history (EMS, parent, family, police, friend...)? What history was obtained from this source @ -No Did you review nursing and triage notes (agree or disagree)? Why? @ -I reviewed and agree with nursing and triage notes Were old charts reviewed (outside hosp., previous admission, EMS record, old EKG, old radiological studies, urgent care reports/EKG's, long term records)? Report findings @ -No old charts were reviewed Differential Diagnosis (chest pain, altered mental status, abdominal pain women, abdominal pain men, vaginal bleeding, weakness, fever, dyspnea, syncope, headache, dizziness, GI bleed, back pain, seizure, CVA, palpatations, mental health, musculoskeletal)? @ -Differential Dyspnea: Coronary syndrome, arrhythmia, tamponade, asthma, COPD, pulmonary embolism, pneumonia, pneumothorax, pulmonary effusion, anaphylaxis, diabetic ketoacidosis, flailed chest, pulmonary contusion, diaphragmatic rupture, anemia, ne uromuscular, this is not meant to be an all-inclusive list. EKG interpreted by me (3pts min.). @ -As above X-rays interpreted by me (1pt min.). @ -Chest x-ray reveals no acute process CT interpreted by me (1pt min.). @ -None done U/S interpreted by me (1pt. min.). @ -None done What testing was considered but not performed or refused? (CT, X-rays, U/S, labs)? Why? @ -None What meds were considered but not given or refused? Why? @ -None Did you discuss the management of the patient with other professionals (professionals i.e. , PA, QUALITY FACILITATOR, lab, RT, psych nurse, social sciences lecturer, platform operations director, teacher, finance officer, complex case manager)? Give summary @ -No Was smoking cessation discussed for >3mins.? @ -No Was critical care preformed (if so, how long)? @ -No Were there social determinants of health that impacted care today? How? (Homelessness, low income, unemployed, alcoholism, drug addiction, transpor tation, low edu. Level, literacy, decrease access to med. care, shelter, rehab)? @ -No Was there de-escalation of care discussed even if they declined (Discuss DNR or withdrawal of care, Hospice)? DNR status @ -No What co-morbidities impacted this encounter? (DM, HTN, Smoking, COPD, CAD, Cancer, CVA, ARF, Chemo, Hep., AIDS, mental health diagnosis, sleep apnea, morbid obesity)? @ -COPD Was patient admitted / discharged? Hospital course, mention meds given and route, prescriptions, significant lab abnormalities, going to OR and other pertinent info. @ - discharge. 54-year-old female with history of COPD presenting for shortness of breath x 1 week. Patient is initially tachypneic and placed on 2 L of oxygen and is satting at 93% on room air. Diffuse expiratory wheezing in all lung fitzpatrick bilaterally. Patient was given IV steroid and 2 DuoNeb breathing treatments. Lab work largely unremarkable. White blood cell count normal. Troponin undetectable. Chest x-ray reveals no acute process. Upon reevaluation, patient reports significant improvement of symptoms. Patient is no longer requiring nasal cannula and can be safely discharged home with strict return precautions and close outpatient follow-up. Case was discussed with my ED attending Dr. Patel. Undiagnosed new problem with uncertain prognosis? @ -No Drug Therapy requiring intensive monitoring for toxicity (Heparin, Nitro, Insulin, Cardizem)? @ -No Were any procedures done? @ -No Diagnosis/symptom? @ -COPD exacerbation Acute, or Chronic, or Acute on Chronic? @ -Acute Uncomplicated (without systemic symptoms) or Complicated (systemic symptoms)? @ -Uncomplicated Side effects of treatment? @ -No Exacerbation, Progression, or Severe Exacerbation? @ -No Poses a threat to life or bodily function? How? (Chest pain, USA, [place], pneumonia, PE, COPD, DKA, ARF, appy, cholecystitis, CVA, Diverticulitis, Homicidal, Suicidal, threat to staff... and all critical care pts) @ -Not at this time - Lab Data Result diagrams: 01/11/25 20:51 01/11/25 20:51 Lab Results 01/11/25 01/11/25 01/11/25 Range/Units 20:51 20:51 20:51 WBC 7.75 (4.50-10.00) 10*3/uL RBC 4.85 (4.10-5.20) 10*6/uL Hgb 15.5 H (12.0-15.0) g/dL Hct 45.2 (37.2-46.3) % MCV 93.2 (80.0-97.0) fL MCH 32.0 (27.0-32.0) pg MCHC 34.3 (32.0-37.0) g/dL Plt Count 338 (140-440) 10*3/uL MPV 9.1 L (9.5-12.2) fL Immature Gran % (Auto) 0.1 % Neutrophils % 53.2 % Lymphocytes % 29.9 % Monocytes % 7.0 % Eosinophils % 8.8 % Basophils % 1.0 % Immature Gran # 0.01 (0.00-0.04) 10*3/uL Neutrophils # 4.12 (1.80-7.70) 10*3/uL Lymphocytes # 2.32 (0.90-5.00) 10*3/uL Monocytes # 0.54 (0.20-1.00) 10*3/uL Eosinophils # 0.68 H (0.04-0.35) 10*3/uL Basophils # 0.08 (0.00-0.10) 10*3/uL PT 11.7 (10.0-12.5) sec INR 1.1 (<1.2) APTT 25.8 (22.0-30.0) sec Sodium 141 (137-145) mmol/L Potassium 4.4 (3.5-5.1) mmol/L Chloride 107 (98-107) mmol/L Carbon Dioxide 23 (22-30) mmol/L Anion Gap 11 mmol/L BUN 12 (7-17) mg/dL Creatinine 0.96 (0.52-1.04) mg/dL Est GFR (CKD-EPI)AfAm 77 (>60 ml/min/1.73 sqM) Est GFR (CKD-EPI)NonAf 67 (>60 ml/min/1.73 sqM) Glucose 107 H (74-99) mg/dL Plasma Lactic Acid Ankit (0.7-2.0) mmol/L Calcium 9.5 (8.4-10.2) mg/dL Magnesium 1.9 (1.6-2.3) mg/dL Total Bilirubin 0.6 (0.2-1.3) mg/dL AST 24 (14-36) U/L ALT 10 (4-34) U/L Alkaline Phosphatase 86 (38-126) U/L Troponin I (0.000-0.034) ng/mL Total Protein 7.8 (6.3-8.2) g/dL Albumin 4.8 (3.5-5.0) g/dL 01/11/25 01/11/25 Range/Units 20:51 20:51 WBC (4.50-10.00) 10*3/uL RBC (4.10-5.20) 10*6/uL Hgb (12.0-15.0) g/dL Hct (37.2-46.3) % MCV (80.0-97.0) fL MCH (27.0-32.0) pg MCHC (32.0-37.0) g/dL Plt Count (140-440) 10*3/uL MPV (9.5-12.2) fL Immature Gran % (Auto) % Neutrophils % % Lymphocytes % % Monocytes % % Eosinophils % % Basophils % % Immature Gran # (0.00-0.04) 10*3/uL Neutrophils # (1.80-7.70) 10*3/uL Lymphocytes # (0.90-5.00) 10*3/uL Monocytes # (0.20-1.00) 10*3/uL Eosinophils # (0.04-0.35) 10*3/uL Basophils # (0.00-0.10) 10*3/uL PT (10.0-12.5) sec INR (<1.2) APTT (22.0-30.0) sec Sodium (137-145) mmol/L Potassium (3.5-5.1) mmol/L Chloride (98-107) mmol/L Carbon Dioxide (22-30) mmol/L Anion Gap mmol/L BUN (7-17) mg/dL Creatinine (0.52-1.04) mg/dL Est GFR (CKD-EPI)AfAm (>60 ml/min/1.73 sqM) Est GFR (CKD-EPI)NonAf (>60 ml/min/1.73 sqM) Glucose (74-99) mg/dL Plasma Lactic Acid Ankit 0.7 (0.7-2.0) mmol/L Calcium (8.4-10.2) mg/dL Magnesium (1.6-2.3) mg/dL Total Bilirubin (0.2-1.3) mg/dL AST (14-36) U/L ALT (4-34) U/L Alkaline Phosphatase (38-126) U/L Troponin I <0.012 (0.000-0.034) ng/mL Total Protein (6.3-8.2) g/dL Albumin (3.5-5.0) g/dL - EKG Data -: EKG Interpreted by Me EKG Comments: EKG reveals normal sinus rhythm with no acute ST changes. Ventricular rate 67 bpm, RI interval 133, QRS duration 78, QT/QTc 381/396 Disposition Clinical Impression: COPD exacerbation Disposition: HOME SELF-CARE Condition: Stable Instructions (If sedation given, give patient instructions): COPD (Chronic Obstructive Pulmonary Disease) (ED) Additional Instructions: Start prednisone tomorrow. Please return to the Emergency Department if symptoms worsen or any other concerns. Prescriptions: predniSONE [Deltasone] 40 mg PO DAILY #10 tab Is patient prescribed a controlled substance at d/c from ED?: No Referrals: None,Stated [Primary Care Provider] - 1-2 days Time of Disposition: 22:37
--- NOTE | 2025-01-11 19:47 | XR ---
EXAMINATION TYPE: XR chest 2V DATE OF EXAM: 01/11/2025 7:41 PM COMPARISON: Prior chest radiograph 07/17/2019. CLINICAL INDICATION: Female, 54 years old with history of difficulty breathing; [facility] TECHNIQUE: XR chest 2V Frontal and lateral views of the chest. FINDINGS: Lungs/Pleura: There is no evidence of pleural effusion, focal consolidation, or pneumothorax. Pulmonary vascularity: Unremarkable. Heart/mediastinum: Cardiomediastinal silhouette is unremarkable. Musculoskeletal: No acute osseous pathology. Other findings: None IMPRESSION: No acute cardiopulmonary disease/process. [facility], , 01/11/2025 7:44 PM
[2025-01-11] MEDS: methylPREDNISolone SOD SUCCI 125 MG/2 ML VIAL IV STA (21:04)
[2025-01-11 21:05] LABS: Basophils # (A) 0.08 10*3/uL (0.00-0.10); Eosinophils # (A) 0.68 10*3/uL (0.04-0.35); Eosinophils % (A) 8.8 %; HCT 45.2 % (37.2-46.3); HGB 15.5 g/dL (12.0-15.0); Lymphocytes # (A) 2.32 10*3/uL (0.90-5.00); Lymphocytes % (A) 29.9 %; MCHC 34.3 g/dL (32.0-37.0); MCV 93.2 fL (80.0-97.0); Mean Platelet Volume 9.1 fL (9.5-12.2); Monocytes # (A) 0.54 10*3/uL (0.20-1.00); Neutrophils # (A) 4.12 10*3/uL (1.80-7.70); Neutrophils % (A) 53.2 %; Platelet Count 338 10*3/uL (140-440); RBC 4.85 10*6/uL (4.10-5.20); RDW 12.9 % (11.5-14.5); WBC 7.75 10*3/uL (4.50-10.00)
[2025-01-11 21:21] LABS: INR 1.1 (<1.2); Partial Thromboplastin Time 25.8 sec (22.0-30.0); Prothrombin Time 11.7 sec (10.0-12.5)
[2025-01-11 21:25] LABS: ALT 10 U/L (4-34); AST 24 U/L (14-36); African American GFR (CKD) 77 (>60 ml/min/1.73 sqM); Albumin 4.8 g/dL (3.5-5.0); Alkaline Phosphatase 86 U/L (38-126); Anion Gap 11 mmol/L; Blood Urea Nitrogen 12 mg/dL (7-17); Calcium 9.5 mg/dL (8.4-10.2); Carbon Dioxide 23 mmol/L (22-30); Chloride 107 mmol/L (98-107); Glucose 107 mg/dL (74-99); Magnesium 1.9 mg/dL (1.6-2.3); Non-African American GFR(CKD) 67 (>60 ml/min/1.73 sqM); Potassium 4.4 mmol/L (3.5-5.1); Sodium 141 mmol/L (137-145); Total Bilirubin 0.6 mg/dL (0.2-1.3); Total Protein 7.8 g/dL (6.3-8.2)
[2025-01-11] MEDS: IPRATROPIUM-ALBUTEROL 3 ML NEB INHALATION STA ×2 (21:29→22:49)
[2025-01-11 22:19] VITALS: BP 137/84; RESP 21; TEMP 98.3
[2025-01-11 22:52] VITALS: PULSE 70
[2025-01-12 00:10] LABS: Influenza A Not Detected (Not Detectd); Influenza B Not Detected (Not Detectd); RSV Not Detected (Not Detectd)
== END 2025-01-11 23:44 | disposition home or self-care (01) ==
LOC: EC 18:32
DX: J44.1 Chronic obstructive pulmonary disease with (acute) exacerbation (principal); F17.200 Nicotine dependence, unspecified, uncomplicated; Z88.6 Allergy status to analgesic agent; Z88.8 Allergy status to other drugs, medicaments and biological substances
CPT/HCPCS: 36415; 94640 ×2; 93005; 80053; 83605; 83735; 84484; 85025; 85610; 85730; 87636; 71046; 99285; 96374; J2919